=== PATIENT | male | born 1940 | race Asian ===

== ENCOUNTER 2022-08-16 00:04 | Inpatient (IN) | payer MEDICARE, OTHER ==
[~2022-08-16] VITALS: Ht 175.3 cm; Wt 62.1 kg
[2022-08-16] MEDS ORDERED: ACETAMINOPHEN 325 MG TABLET PO PRN (11:00)
[2022-08-16] MEDS ORDERED: DEXTROSE 50%-WATER 50 ML DISP.SYRIN IV PRN (11:00)
[2022-08-16] MEDS ORDERED: BLOOD SUGAR DIAGNOSTIC 1 EACH STRIP IN ONE (11:00)
[2022-08-16] MEDS ORDERED: MAGNESIUM HYDROXIDE 30 ML UDC PO PRN (11:00)
--- NOTE | 2022-08-16 11:00 | NUR ---
RN-ADMISSION NOTES 82 Y.O MALE PATIENT WAS BROUGHT IN BY AMBULANCE VIA GURNEY ADMITTED FOR 5150 FOR DTS FROM [facility] ER. UPON FACE TO IN FACE ASSESSMENT. PATIENT A/O X1, DENIES SI/HI,VAH WITH DISORGANIZE THOUGHT UNABLE TO FOCUS ON THE CONSERVATION. PATIENT IS AMBULATORY STEADY GAIT. PATIENT IS VERY POOR HISTORIAN UNABLE TO UNSWEAR MOST OF THE QUESTION DESPITE THE USE OF SENIOR MANAGER.PATIENT HAD NO FAMILY TO NOTIFY ON THE ADMISSION. DR. VALDES SEEN THE PATIENT IN THE UNIT WITH ORDERS. DR. ZHENG (ENERGY CONSERVATION DIRECTOR) MADE AWARE. PATIENT ORIENTED IN HIS ROOM,THE UNIT AND UNIT POLICIES.
[2022-08-16] MEDS: BLOOD SUGAR DIAGNOSTIC 1 EACH STRIP VI SCH ×3 (12:00→21:41)
--- NOTE | 2022-08-16 12:30 | NUR ---
RN-NOTES PATIENT BS WAS 487 MG/DL, WILL GIVE 15 UNITS OF R INSULIN ORDERED. DR. ZHENG MADE AWARE.
[2022-08-16] MEDS: INSULIN REGULAR, HUMAN 100 UNIT/ML 3 ML VIAL SQ PRN ×2 (12:39→16:42)
[2022-08-16] MEDS: METFORMIN 850 MG TABLET PO SCH ×2 (12:41→16:28)
[2022-08-16] MEDS: glipiZIDE 5 MG TABLET PO SCH ×2 (12:42→16:28)
[2022-08-16] MEDS ORDERED: LOSA25TA27 PO (12:43)
[2022-08-16] MEDS ORDERED: INSU100V27 SQ (12:43)
[2022-08-16] MEDS ORDERED: ZOLP5TAB8 PO (12:43)
[2022-08-16] MEDS ORDERED: CHOL200010 PO (12:43)
[2022-08-16] MEDS ORDERED: ATOR10TA PO (12:43)
[2022-08-16] MEDS ORDERED: MONT10TA22 PO (12:43)
[2022-08-16] MEDS ORDERED: ASPI-1420 PO (12:43)
--- NOTE | 2022-08-16 12:49 | NUR ---
VALENTIN Clinical Note: Pt placed on a 5150 hold for danger to self. Pt stated at the court he wanted to hang himself. Patient lives at home located at [address] [place] [address]; ([phone]). Pt unable to identify his address. Pt does not have supportive contact at this time. Pt would need a SNF.
--- NOTE | 2022-08-16 12:49 | NUR ---
VALENTIN Initial Discharge: Patient lives at home located at [address] [place] [id number]; ([phone]). Pt unable to identify his address. Pt does not have supportive contact at this time. Pt would need a SNF. VALENTIN will work with the MD and pt to help coordinate appropriate discharge.
--- NOTE | 2022-08-16 12:50 | NUR ---
Treatment Plan: Pt refused to sign treatment plan and was very confused.
[2022-08-16] MEDS ORDERED: SERTRALINE HCL 25 MG TABLET PO SCH (13:00)
[2022-08-16 16:00] VITALS: BP 103/60
[2022-08-16] MEDS: LORAZEPAM 0.5 MG TABLET PO PRN (17:05)
--- NOTE | 2022-08-16 17:07 | NUR ---
RN-NOTES NOTED PATIENT VERY ANXIOUS FOCUS ON GOING HOME AND ASKING WHEN HE CAN GO HOME WITH ANGRY VOICE. REDIRECTED AND ATIVAN 0.5MG P.O GIVEN PRN ORDER. WILL CONT. MONITORING FOR SAFETY AND BEHAVIOR.
--- NOTE | 2022-08-16 18:10 | NUR ---
RN-NOTES PATIENT LYING IN BED AWAKE A/O X1 CALM,NO ACUTE DISTRESS NOTED. COMPLIANT WITH MEDICATIONS. PATIENT AMBULATORY STEADY GAIT ABLE TO MAKE NEEDS KNOWN TO THE STAFF. ALL NEEDS ATTENDED AND ANTICIPATED. WILL CONT. MONITORING FOR SAFETY AND BEHAVIOR. WILL ENDORSE TO INCOMING NURSE FOR THE CONTINUITY OF CARE.
[2022-08-16 19:48] VITALS: BP 100/74
--- NOTE | 2022-08-16 20:43 | NUR ---
PATIENT REQUESTED TO CHECK HIS BLOOD GLUCOSE LEVEL AND BS IS 111 MG/DL. PATIENT WANTED TO EAT SNACK, SNACK AND JUICE GIVEN TO THE PATIENT, TOLERATING WELL. WILL CONTINUE TO MONITOR FOR ANY CHANGE OF CONDITION.
[2022-08-16] MEDS: MAG HYDROX/AL HYDROX/SIMETH 30 ML UDC PO PRN (22:06)
--- NOTE | 2022-08-16 22:09 | NUR ---
RN NOTE PATIENT C/O UPSET STOMACH AND WANTED TO TAKE MEDICINE. PRN MAALOX 30 ML PO ADMINISTERED PER MD ORDER. WILL CONTINUE TO MONITOR.
--- NOTE | 2022-08-16 22:20 | NUR ---
PATIENT'S DAUGHTER RANDELL CALLED TO GET AN UPDATE ABOUT PATIENT'S HEALTH CONDITION. PER AM RN, NO FAMILY INFO WAS PROVIDED UPON ADMISSION. PER RANDELL, PATIENT IS CONFUSED AND DIABETIC, LIVES WITH FAR RELATIVES CURRENTLY IN [place], HAD BEEN INDEPENDENT, GETS AGITATED, ANXIOUS, RESTLESS EASILY AND HAD HYPOGLYCEMIC EPISODES DUE TO DIABETES. RANDELL WOULD LIKE TO GET AN UPDATE FROM DR. VALDES TOMORROW REGARDING HER FATHER'S HEALTH CONDITION. WILL ENDORSE TO AM RN TO RELAY MESSAGE TO DR. VALDES. RANDELL PROVIDED HER PHONE NUMBER ([phone]) TO BE REACHED AT IN CASE OF EMERGENCY OR FOR ANY UPDATE ABOUT THE PATIENT.
--- NOTE | 2022-08-17 01:15 | NUR ---
RN NOTE PATIENT REQUESTED TO CHECK HIS BLOOD GLUCOSE LEVEL SINCE HE HAS BEEN WORRIED ABOUT HAVING LOW BLOOD SUGAR LEVELS AT HOME. BS IS 350 MG/DL AT THIS TIME. OFFERED SLIDING SCALE INSULIN BUT PATIENT GOT AGITATED, ANXIOUS AND STATED," IF YOU GIVE ME MEDICINE, BLOOD SUGAR GO DOWN AND I WILL ." PATIENT IS EASILY AGITATED, RESTLESS, UNCOOPERATIVE, DESPITE OF RISKS AND BENEFITS EXPLANATIONS, PATIENT CONTINUED TO REFUSE INSULIN PER PROTOCOL. WILL CONTINUE TO MONITOR FOR SYMPTOMS FOR HYPERGLYCEMIA.
--- NOTE | 2022-08-17 06:39 | NUR ---
PATIENT STRONGLY REFUSED AM LABS DESPITE OF RISKS AND BENEFITS EXPLANATIONS. PATIENT IS UNCOOPERATIVE WITH PLAN OF CARE.
[2022-08-17] MEDS: BLOOD SUGAR DIAGNOSTIC 1 EACH STRIP VI SCH ×4 (07:30→22:11)
[2022-08-17 08:00] VITALS: BP 166/83
[2022-08-17] MEDS: glipiZIDE 5 MG TABLET PO SCH ×2 (08:47→16:32)
[2022-08-17] MEDS: METFORMIN 850 MG TABLET PO SCH ×2 (08:47→16:32)
[2022-08-17] MEDS: INSULIN REGULAR, HUMAN 100 UNIT/ML 3 ML VIAL SQ PRN (08:56)
--- NOTE | 2022-08-17 11:38 | NUR ---
VALENTIN Referral: VALENTIN sent clinicals to [facility] ([phone]) for placement. VALENTIN sent H & P, progress notes, and medication list.
--- NOTE | 2022-08-17 11:49 | NUR ---
VALENTIN Family Contact: VALENTIN contacted pt's daughter Bouchra ([phone]) and discussed pt's discharge and treatment plan. Daughter expressed that she realized pt's symptoms occurring 2-3 years ago. She stated that her parents have been since 2007. She expressed that a year ago she was taking care of her dad at her house. However, she realized that he was experiencing hallucinations seeing things. She expressed that she feels that he was also experiencing delusions. She stated that recently she moved into a house with roommates. She expressed pt finds ways to come to her house and threatening family with a hammer or knife. She shared information about the court. She expressed that he had filed a lawsuit against the for financial situation and when he lost the case he made the statements of wanting to kill himself. Daughter stated that she is not the DPOA/conservator but would want pt to be discharged to a SNF as it is unsafe for him and the family.
[2022-08-17] MEDS: *INSULIN REGULAR(HUMULIN R)HUM 100 UNIT/ML VIAL SQ PRN ×2 (12:09→22:11)
[2022-08-17] MEDS: DIVALPROEX SODIUM 125 MG CAP.SPRINK PO SCH ×2 (12:39→16:32)
[2022-08-17 14:47] LABS: BILIRUBIN,TOTAL 0.3 mg/dL (0.2-1.0); POTASSIUM 3.9 mmol/L (3.5-5.1); TOTAL PROTEIN, SERUM 7.2 g/dL (6.4-8.2)
[2022-08-17 14:48] LABS: CHOLESTEROL 166 mg/dL (<200); HDL CHOLESTEROL 44 mg/dL (40-60); LDL 102 mg/dL (0-99); TRIGLYCERIDES 116 mg/dL (30-150)
[2022-08-17 16:00] VITALS: BP 126/67
--- NOTE | 2022-08-17 16:54 | NUR ---
RN-NOTES PATIENT BS WAS 173MG/DL, PATIENT REFUSED COVERAGE OF 3 UNITS OF REGULAR INSULIN. STATED" IT'S GOOD NO INJECTION". EXPLAINED RISK AND BENEFITS BUT STILL REFUSED. OFFERED X3
--- NOTE | 2022-08-17 17:58 | NUR ---
RN-NOTES PATIENT IS VISIBLE IN THE UNIT GUARDED,A/OX2, COOPERATIVE WITH STAFF,COMPLIANT WITH MEDICATIONS. ENCOURAGED TO PARTICIPATES IN THE GROUP BUT PREFERS TO STAY IN THE ROOM AND REST. PATIENT AMBULATORY WITH STEADY GAIT.PATIENT ABLE TO MAKE NEEDS KNOWN TO THE STAFF. ALL NEEDS ATTENDED AND ANTICIPATED. WILL CONT. MONITORING FOR SAFETY AND BEHAVIOR. WILL ENDORSE TO INCOMING NURSE FOR THE CONTINUITY OF CARE.
--- NOTE | 2022-08-17 19:49 | NUR ---
RN NOTES: RECEIVED PATIENT WALKING AROUND THE UNIT, IN NO APPARENT DISTRESS NOTED. PATIENT REMAINS CONFUSED, DISORGANIZED,ANXIOUS,RESTLESS, ARGUMENTATIVE EASILY AGITATED .HYPERVERBAL,ENTITLED , LABILE, NEEDY DEMANDING, FOCUS ON DISCHARGE AND FOCUS FREQUENTLY CHECKING BLOOD SUGAR WITHOUT SCHEDULE, ORIENTIONS PROVIDED, ALL NEEDS ATTENDED, NEEDS FREQUENTLY REDIRECTIONS ,SAFETY PRECAUTIONS MAINTAINED. WILL CONTINUE TO MONITOR Q15MIN ROUNDS FOR SAFETY AND BEHAVIOR.
[2022-08-17 20:00] VITALS: BP 146/68
--- NOTE | 2022-08-17 22:14 | NUR ---
RN-NOTES; REFUSED INSULLIN COVERAGE PATIENT BS WAS 283MG/DL, PATIENT REFUSED COVERAGE OF 6 UNITS OF REGULAR INSULIN. PER PT. STATED" I KNOW MY SELF THAT'S GOOD BLOOD SUGAR, IF I TAKE INSULLIN COVERAGE GET EASLIY DECREASED BLOOD SUGAR . EXPLAINED RISK AND BENEFITS BUT STILL REFUSED. OFFERED X3 , WILL CONTINUE WITH CARE.
[2022-08-17] MEDS: LORAZEPAM 0.5 MG TABLET PO PRN (22:42)
--- NOTE | 2022-08-17 22:44 | NUR ---
RN NOTES: ANXIETY PATIENT C/O FEELING AGITATED, ANXIOUS, RESTLESS, PRN ATIVAN 0.5 MG PO ADMINISTERED ORDERED BY MD. WILL CONTINUE TO MONITOR FOR SAFETY AND BEHAVIOR.
[2022-08-18 06:50] LABS: BASOPHILS % (AUTO) 0.5 % (0.0-2.0); EOSINOPHILS % (AUTO) 6.9 % (0.0-6.0); HEMATOCRIT 34 % (39-51); HEMOGLOBIN 11.7 g/dL (13.5-17.5); LYMPHOCYTES # (AUTO) 1.5 K/uL (0.8-4.8); LYMPHOCYTES % (AUTO) 27.9 % (20.0-44.0); MEAN CORPUSCULAR HGB CONC 34 g/dl (31.0-36.0); MEAN CORPUSCULAR VOLUME 93 fL (80-96); MONOCYTES # (AUTO) 0.8 K/uL (0.1-1.30); MONOCYTES % (AUTO) 14.7 % (2.0-12.0); NEUTROPHILS # (AUTO) 2.7 K/uL (1.8-8.9); PLATELET COUNT (AUTO) 187 K/uL (150-450); RED BLOOD CELL COUNT(AUTO) 3.69 MIL/uL (4.5-6.0); WHITE BLOOD COUNT (AUTO) 5.3 K/uL (4.3-11.0)
[2022-08-18 07:09] LABS: ALBUMIN 2.9 g/dL (3.4-5.0); BILIRUBIN,TOTAL 0.5 mg/dL (0.2-1.0); CALCIUM, SERUM 8.8 mg/dL (8.5-10.1); CREATININE 0.9 mg/dL (0.6-1.3); PHOSPHORUS 2.8 mg/dL (2.5-4.9); POTASSIUM 4.6 mmol/L (3.5-5.1); TOTAL PROTEIN, SERUM 6.9 g/dL (6.4-8.2)
[2022-08-18 07:13] LABS: THYROID STIMULATING HORMONE 2.264 uIU/mL (0.358-3.74)
[2022-08-18] MEDS: INSULIN REGULAR, HUMAN 100 UNIT/ML 3 ML VIAL SQ PRN ×2 (07:56→12:28)
[2022-08-18 08:00] VITALS: BP 150/72
[2022-08-18] MEDS: BLOOD SUGAR DIAGNOSTIC 1 EACH STRIP VI SCH ×4 (08:03→21:10)
[2022-08-18] MEDS: glipiZIDE 5 MG TABLET PO SCH ×2 (08:04→17:40)
[2022-08-18] MEDS: DIVALPROEX SODIUM 125 MG CAP.SPRINK PO SCH ×3 (08:04→17:39)
[2022-08-18] MEDS: METFORMIN 850 MG TABLET PO SCH ×2 (08:04→17:39)
--- NOTE | 2022-08-18 08:41 | NUR ---
VALENTIN Family Contact: VALENTIN contacted pt's daughter Bouchra ([phone]) and advised her to get a temporarily or emergency restraining order. She stated that they had filed for an emergency protective order, however, she stated that this is "useless" because her mother (pt's ex-) ends up taking care of pt and not follow directives. VALENTIN requested if daughter can send these documents she stated she will Email it by 08/19.
[2022-08-18 16:00] VITALS: BP 144/78
--- NOTE | 2022-08-18 17:53 | NUR ---
GPS/RN ACCUCHECK AT 1730 WITH YB=326. PT REFUSED INSULIN COVERAGE OFFERED X4.
--- NOTE | 2022-08-18 19:51 | NUR ---
RN NOTES: RECEIVED PATIENT SITTING IN HIS BED, IN NO APPARENT DISTRESS NOTED. PATIENT REMAINS CONFUSED, DISORGANIZED,ANXIOUS,RESTLESS, ARGUMENTATIVE EASILY AGITATED .HYPERVERBAL,ENTITLED , LABILE, NEEDY DEMANDING, FOCUS ON CHECKING BLOOD SUGAR WITHOUT SCHEDULE, ORIENTIONS PROVIDED, ALL NEEDS ATTENDED, NEEDS FREQUENTLY REDIRECTIONS ,SAFETY PRECAUTIONS MAINTAINED. WILL CONTINUE TO MONITOR Q15MIN ROUNDS FOR SAFETY AND BEHAVIOR.
[2022-08-18 20:00] VITALS: BP 137/64
[2022-08-18] MEDS: *INSULIN REGULAR(HUMULIN R)HUM 100 UNIT/ML VIAL SQ PRN (21:16)
--- NOTE | 2022-08-18 21:17 | NUR ---
RN-NOTES; REFUSED INSULLIN COVERAGE PATIENT BS WAS 244MG/DL, PATIENT REFUSED COVERAGE OF 4 UNITS OF REGULAR INSULIN. PER PT. STATED" I KNOW MY SELF THAT'S GOOD BLOOD SUGAR, IF I TAKE INSULLIN COVERAGE GET EASLIY DECREASED BLOOD SUGAR . EXPLAINED RISK AND BENEFITS BUT STILL REFUSED. OFFERED X3 , WILL CONTINUE WITH CARE.
[2022-08-18] MEDS ORDERED: DIVALPROEX SODIUM 125 MG CAP.SPRINK PO SCH (22:00)
[2022-08-18] MEDS: LORAZEPAM 0.5 MG TABLET PO PRN (22:54)
--- NOTE | 2022-08-18 22:55 | NUR ---
RN NOTES : ANXIETY PATIENT C/O FEELING AGITATED, ANXIOUS, RESTLESS, PRN ATIVAN 0.5 MG PO ADMINISTERED ORDERED BY MD. WILL CONTINUE TO MONITOR FOR SAFETY AND BEHAVIOR.
[2022-08-19 08:00] VITALS: BP 119/63
[2022-08-19] MEDS: BLOOD SUGAR DIAGNOSTIC 1 EACH STRIP VI SCH ×4 (08:24→22:00)
[2022-08-19] MEDS: *INSULIN REGULAR(HUMULIN R)HUM 100 UNIT/ML VIAL SQ PRN ×2 (08:26→22:14)
[2022-08-19] MEDS: DIVALPROEX SODIUM 125 MG CAP.SPRINK PO SCH ×4 (08:28→22:04)
[2022-08-19] MEDS: METFORMIN 850 MG TABLET PO SCH ×2 (08:28→16:54)
[2022-08-19] MEDS: glipiZIDE 5 MG TABLET PO SCH ×2 (08:28→16:54)
[2022-08-19] MEDS: INSULIN REGULAR, HUMAN 100 UNIT/ML 3 ML VIAL SQ PRN (12:10)
[2022-08-19 16:00] VITALS: BP 126/60
--- NOTE | 2022-08-19 16:51 | NUR ---
GPS/RN ACCUCHECK WITH NQ=868. PT REQUESTED NO INSULIN COVERAGE
[2022-08-19 20:00] VITALS: BP 119/63
[2022-08-19 20:05] VITALS: BP 119/63
--- NOTE | 2022-08-19 20:05 | NUR ---
RN OPENING NOTES: RECEIVED PATIENT AWAKE IN BED, AMBULATORY ABLE TO MAKE NEEDS KNOWN, NO COMPLAIN OF PAIN AND DISCOMFORT AT THIS TIME, ON ROOM AIR SATURATING WELL, PATIENT APPEARS CALM, NO COMBATIVE BEHAVIOR WAS OBSERVED, KEPT CLEAN AND DRY ALL NEEDS MET, WILL CONTINUE TO MONITOR.
--- NOTE | 2022-08-19 22:21 | NUR ---
RN NOTES: BLOOD SUGAR-229/ 3 UNITS INSULIN NOT GIVEN/ PATIENT REFUSED INSULIN
[2022-08-20] MEDS: LORAZEPAM 0.5 MG TABLET PO PRN (00:08)
[2022-08-20] MEDS: BLOOD SUGAR DIAGNOSTIC 1 EACH STRIP VI SCH ×4 (07:52→22:13)
[2022-08-20] MEDS: INSULIN REGULAR, HUMAN 100 UNIT/ML 3 ML VIAL SQ PRN (07:56)
[2022-08-20] MEDS: glipiZIDE 5 MG TABLET PO SCH ×2 (07:59→16:05)
[2022-08-20 08:00] VITALS: BP 113/68
[2022-08-20] MEDS: DIVALPROEX SODIUM 125 MG CAP.SPRINK PO SCH ×4 (09:03→22:11)
[2022-08-20] MEDS: METFORMIN 850 MG TABLET PO SCH ×2 (09:03→16:05)
--- NOTE | 2022-08-20 11:59 | NUR ---
RN NOTE Patient's blood glucose is 221, patient refused Insulin coverage.
[2022-08-20 16:00] VITALS: BP 131/68
--- NOTE | 2022-08-20 18:53 | NUR ---
RN CLOSING NOTE Patient keeps walking around the hallway. Stable on room air. Patient is compliant with medications. No s/s of distress noted. Refused Insulin coverage, last blood glucose is 199. Will endorse to material handler 1st shift nurse for [facility].
--- NOTE | 2022-08-20 20:18 | NUR ---
GPS PLANT AND MACHINERY VALUER NOTE, RECEIVED PATIENT ASLEEP IN BED, NO S/S OF APPARENT DISTRESS AT THIS TIME. PATIENT BREATHING IS UNLABORED WITH EQUAL RISE AND FALL OF THE CHEST. WILL CONTINUE TO MONITOR FOR SAFETY AND BEHAVIOR.
[2022-08-20 20:26] VITALS: BP 152/79
[2022-08-20] MEDS: TEMAZEPAM 7.5 MG CAPSULE PO PRN ×2 (22:11)
[2022-08-20] MEDS: *INSULIN REGULAR(HUMULIN R)HUM 100 UNIT/ML VIAL SQ PRN (22:14)
[2022-08-21] MEDS: LORAZEPAM 0.5 MG TABLET PO PRN ×2 (03:48→14:03)
[2022-08-21] MEDS: BLOOD SUGAR DIAGNOSTIC 1 EACH STRIP VI SCH ×4 (06:50→21:15)
[2022-08-21] MEDS: INSULIN REGULAR, HUMAN 100 UNIT/ML 3 ML VIAL SQ PRN ×2 (06:51→08:20)
[2022-08-21] MEDS: glipiZIDE 5 MG TABLET PO SCH ×2 (07:38→16:30)
[2022-08-21 07:40] LABS: ALBUMIN 3.4 g/dL (3.4-5.0); BILIRUBIN,TOTAL 0.5 mg/dL (0.2-1.0); CALCIUM, SERUM 9.5 mg/dL (8.5-10.1); POTASSIUM 5.3 mmol/L (3.5-5.1); TOTAL PROTEIN, SERUM 8.2 g/dL (6.4-8.2)
[2022-08-21 07:44] LABS: BASOPHILS % (AUTO) 0.4 % (0.0-2.0); EOSINOPHILS % (AUTO) 6.1 % (0.0-6.0); HEMATOCRIT 40 % (39-51); HEMOGLOBIN 13.3 g/dL (13.5-17.5); LYMPHOCYTES # (AUTO) 1.9 K/uL (0.8-4.8); LYMPHOCYTES % (AUTO) 30.1 % (20.0-44.0); MEAN CORPUSCULAR HGB CONC 33 g/dl (31.0-36.0); MEAN CORPUSCULAR VOLUME 94 fL (80-96); MONOCYTES # (AUTO) 0.8 K/uL (0.1-1.30); MONOCYTES % (AUTO) 13.5 % (2.0-12.0); NEUTROPHILS # (AUTO) 3.1 K/uL (1.8-8.9); NEUTROPHILS % (AUTO) 49.9 % (43.0-81.0); PLATELET COUNT (AUTO) 196 K/uL (150-450); RED BLOOD CELL COUNT(AUTO) 4.25 MIL/uL (4.5-6.0); WHITE BLOOD COUNT (AUTO) 6.3 K/uL (4.3-11.0)
[2022-08-21 08:00] VITALS: BP 118/69
[2022-08-21] MEDS: METFORMIN 850 MG TABLET PO SCH ×2 (08:21→17:36)
[2022-08-21] MEDS: DIVALPROEX SODIUM 125 MG CAP.SPRINK PO SCH ×4 (08:21→20:52)
--- NOTE | 2022-08-21 08:58 | NUR ---
VALENTIN Family Contact: VALENTIN contacted pt's daughter Bouchra ([phone]) and left a voicemail requested the documents of the emergency order.
--- NOTE | 2022-08-21 14:03 | NUR ---
NURSE NOTE: PT AGITATED AND RESTLESS AT THIS TIME. ATIVAN PO ADMINISTERED ORDERED. PT MEGAN WELL. WILL CONT TO MONITOR.
--- NOTE | 2022-08-21 15:00 | NUR ---
NURSE NOTE: PT CONT RESTLESS BUT MORE CALM AT THIS TIME. PT IN STABLE COND. WILL CONT TO MONITOR.
[2022-08-21 16:00] VITALS: BP 117/65
[2022-08-21 20:26] VITALS: BP 119/67
--- NOTE | 2022-08-21 21:15 | NUR ---
RN NOTE PATIENT'S BLOOD GLUCOSE IS 221, PATIENT REFUSED INSULIN COVERAGE. DESPITE OF EXPLANATION THE RISKS/BENEFITS PT CONTINUED TO REFUSE AND BECAME AGITATED WHEN OFFERED.
[2022-08-21] MEDS: *INSULIN REGULAR(HUMULIN R)HUM 100 UNIT/ML VIAL SQ PRN (22:27)
[2022-08-22 08:00] VITALS: BP 124/83
[2022-08-22] MEDS: METFORMIN 850 MG TABLET PO SCH ×2 (08:23→16:42)
[2022-08-22] MEDS: glipiZIDE 5 MG TABLET PO SCH ×2 (08:23→16:41)
--- NOTE | 2022-08-22 08:37 | NUR ---
VALENTIN Family Contact: VALENTIN contacted pt's daughter Bouchra ([phone]) and left a voicemail requested the documents of the emergency order. This is the second attempt.
--- NOTE | 2022-08-22 08:37 | NUR ---
Greer: SW will contact pt's daughter to notify of discharge Bouchra ([phone]) upon dc.
[2022-08-22] MEDS: INSULIN REGULAR, HUMAN 100 UNIT/ML 3 ML VIAL SQ PRN ×2 (08:44→12:33)
[2022-08-22] MEDS: BLOOD SUGAR DIAGNOSTIC 1 EACH STRIP VI SCH ×4 (08:45→21:22)
[2022-08-22] MEDS: DIVALPROEX SODIUM 125 MG CAP.SPRINK PO SCH ×4 (11:19→21:35)
--- NOTE | 2022-08-22 11:54 | NUR ---
VALENTIN Note: VALENTIN used L-[employer] academic coordinator #[id number]. VALENTIN and Dr. Lopez present explaining to the pt that daughter is not answer phone calls so he is unable to return back home and will be needing a nursing facility. He appeared to be understanding but forgetful.
--- NOTE | 2022-08-22 14:03 | NUR ---
Court Hearing: Patient's court hearing for 9370 was today and it was upheld for danger to himself and GD.
--- NOTE | 2022-08-22 14:03 | NUR ---
Court Notification: SW attempted to contact pt's daughter Bouchra ([phone]) and left a voicemail of [phone] hearing.
[2022-08-22 16:00] VITALS: BP 125/73
[2022-08-22 19:55] VITALS: BP 109/52
[2022-08-22 21:30] VITALS: BP 109/52
[2022-08-23 08:00] VITALS: BP 112/63
[2022-08-23] MEDS: METFORMIN 850 MG TABLET PO SCH ×2 (08:16→17:07)
[2022-08-23] MEDS: DIVALPROEX SODIUM 125 MG CAP.SPRINK PO SCH ×4 (08:17→20:46)
[2022-08-23] MEDS: BLOOD SUGAR DIAGNOSTIC 1 EACH STRIP VI SCH ×4 (08:17→22:14)
[2022-08-23] MEDS: glipiZIDE 5 MG TABLET PO SCH ×2 (08:18→17:07)
[2022-08-23] MEDS: INSULIN REGULAR, HUMAN 100 UNIT/ML 3 ML VIAL SQ PRN (12:18)
[2022-08-23] MEDS: GLUCERNA SHAKE 237 ML CAN PO SCH (17:07)
[2022-08-23 19:49] VITALS: BP 124/74
--- NOTE | 2022-08-23 19:50 | NUR ---
RN NOTES: RECEIVED PATIENT SITTING IN HIS BED, IN NO APPARENT DISTRESS NOTED. PATIENT REMAINS CONFUSED, DISORGANIZED, EASILY AGITATED , HYPERVERBAL, GUARDED LABILE, NEEDY ORIENTIONS PROVIDED, ALL NEEDS ATTENDED, NEEDS FREQUENTLY REDIRECTIONS ,SAFETY PRECAUTIONS MAINTAINED. WILL CONTINUE TO MONITOR Q15MIN ROUNDS FOR SAFETY AND BEHAVIOR.
[2022-08-23] MEDS: *INSULIN REGULAR(HUMULIN R)HUM 100 UNIT/ML VIAL SQ PRN (22:14)
--- NOTE | 2022-08-23 22:16 | NUR ---
RN-NOTES; REFUSED INSULLIN COVERAGE PATIENT BS WAS 208MG/DL, PATIENT REFUSED COVERAGE OF 4 UNITS OF REGULAR INSULIN. PER PT. STATED" I KNOW MY SELF THAT'S GOOD BLOOD SUGAR, . EXPLAINED RISK AND BENEFITS BUT STILL REFUSED. OFFERED X3 , WILL CONTINUE WITH CARE.
[2022-08-24] MEDS: glipiZIDE 5 MG TABLET PO SCH ×3 (07:30→16:38)
[2022-08-24] MEDS: BLOOD SUGAR DIAGNOSTIC 1 EACH STRIP VI SCH ×4 (07:32→22:05)
[2022-08-24 08:00] VITALS: BP 122/70
[2022-08-24] MEDS: METFORMIN 850 MG TABLET PO SCH ×2 (08:31→16:45)
[2022-08-24] MEDS: DIVALPROEX SODIUM 125 MG CAP.SPRINK PO SCH ×4 (08:31→21:10)
[2022-08-24] MEDS: *INSULIN REGULAR(HUMULIN R)HUM 100 UNIT/ML VIAL SQ PRN ×2 (08:47→22:05)
[2022-08-24] MEDS: GLUCERNA SHAKE 237 ML CAN PO SCH ×2 (08:51→16:37)
--- NOTE | 2022-08-24 09:03 | NUR ---
RN-NOTES; REFUSED INSULIN COVERAGE PATIENT BS WAS 203MG/DL, PATIENT REFUSED INSULIN. PER PT. EXPLAINED RISK AND BENEFITS BUT STILL REFUSED. OFFERED 2X , WILL CONTINUE TO MONITOR.
[2022-08-24] MEDS: INSULIN REGULAR, HUMAN 100 UNIT/ML 3 ML VIAL SQ PRN ×2 (11:17→18:08)
--- NOTE | 2022-08-24 11:20 | NUR ---
RN-NOTES; REFUSED INSULIN COVERAGE PATIENT BS WAS 253MG/DL, PATIENT REFUSED INSULIN. PER PT. PATIENT KEEP ON MENTIONING ABOUT "DYING" EXPLAINED RISK AND BENEFITS BUT STILL REFUSED. WILL APPROACH AGAIN LATER. RACHEL ZENG MACHINE OPERATOR SLITTER TECHNICIAN NOTIFIED.
--- NOTE | 2022-08-24 11:50 | NUR ---
RN-NOTES; REFUSED INSULIN COVERAGE PATIENT STILL REFUSING INSULIN, EXPLAINED RISK AND BENEFITS BUT STILL REFUSED. WILL MONITOR.
--- NOTE | 2022-08-24 12:34 | NUR ---
RN-NOTES; REFUSED INSULIN COVERAGE PATIENT STILL REFUSING INSULIN, THIS TIME APPROACHED BY CHARGE NURSE JAM EXPLAINED RISK AND BENEFITS BUT STILL REFUSED. WILL CONTINUE TO MONITOR
[2022-08-24] MEDS: QUETIAPINE FUMARATE 25 MG TABLET PO SCH ×2 (12:38→16:37)
[2022-08-24 16:00] VITALS: BP 112/59
--- NOTE | 2022-08-24 18:10 | NUR ---
RN-NOTES; REFUSED INSULIN COVERAGE PATIENT REFUSED INSULIN COVERAGE EXPLAINED RISK AND BENEFITS BUT STILL REFUSED. WILL CONTINUE TO MONITOR. APPROACHED AND ENCOURAGED 3X, STILL REFUSED. WILL MONITOR.
--- NOTE | 2022-08-24 18:34 | NUR ---
RN-NOTES PATIENT IS VISIBLE IN THE UNIT GUARDED,[id number] WITH MEDICATIONS. REFUSED INSULIN COVERAGE THIS SHIFT DESPITE ENCOURAGEMENT,EXPLANATIONS RISK AND BENEFITS. FIELD RECORDER ZENG MADE AWARE.ENCOURAGED TO PARTICIPATES IN THE GROUP BUT PREFERS TO STAY IN THE ROOM AND REST. PATIENT AMBULATORY WITH STEADY GAIT.PATIENT ABLE TO MAKE NEEDS KNOWN TO THE STAFF. ALL NEEDS ATTENDED AND ANTICIPATED. WILL CONT. MONITORING FOR SAFETY AND BEHAVIOR. WILL ENDORSE TO INCOMING NURSE FOR THE CONTINUITY OF CARE.
[2022-08-24 20:06] VITALS: BP 102/63
--- NOTE | 2022-08-24 20:41 | NUR ---
RN NOTES: RECEIVED PATIENT RESTING IN HIS BED, IN NO APPARENT DISTRESS NOTED. PATIENT REMAINS CONFUSED, DISORGANIZED, EASILY AGITATED , HYPERVERBAL, GUARDED LABILE, NEEDY ORIENTIONS PROVIDED, FOCUS ON DISCHARGE HOME, ALL NEEDS ATTENDED, NEEDS FREQUENTLY REDIRECTIONS ,SAFETY PRECAUTIONS MAINTAINED. WILL CONTINUE TO MONITOR Q15MIN ROUNDS FOR SAFETY AND BEHAVIOR.
--- NOTE | 2022-08-24 22:06 | NUR ---
RN-NOTES; REFUSED INSULLIN COVERAGE PATIENT BS WAS 203MG/DL, PATIENT REFUSED COVERAGE OF 4 UNITS OF REGULAR INSULIN. PER PT. STATED" I KNOW MY SELF THAT'S GOOD BLOOD SUGAR, EXPLAINED RISK AND BENEFITS BUT STILL REFUSED. OFFERED X3 , WILL CONTINUE WITH CARE.
[2022-08-25 08:00] VITALS: BP 112/60
[2022-08-25] MEDS: BLOOD SUGAR DIAGNOSTIC 1 EACH STRIP VI SCH ×4 (08:33→21:51)
[2022-08-25] MEDS: INSULIN REGULAR, HUMAN 100 UNIT/ML 3 ML VIAL SQ PRN ×2 (08:34→12:42)
[2022-08-25] MEDS: GLUCERNA SHAKE 237 ML CAN PO SCH ×2 (08:43→16:34)
[2022-08-25] MEDS: METFORMIN 850 MG TABLET PO SCH ×2 (08:46→16:37)
[2022-08-25] MEDS: DIVALPROEX SODIUM 125 MG CAP.SPRINK PO SCH ×4 (08:46→21:28)
[2022-08-25] MEDS: QUETIAPINE FUMARATE 25 MG TABLET PO SCH ×2 (08:46→16:42)
[2022-08-25] MEDS: glipiZIDE 5 MG TABLET PO SCH ×2 (08:48→16:39)
[2022-08-25] MEDS ORDERED: LINAGLIPTIN 5 MG TABLET PO SCH (09:00)
[2022-08-25 16:00] VITALS: BP 106/60
--- NOTE | 2022-08-25 17:47 | NUR ---
GPS/RN accucheck with BS =75. NO COVERAGE
[2022-08-25 20:00] VITALS: BP 135/77
--- NOTE | 2022-08-25 20:13 | NUR ---
RN NOTES: RECEIVED PATIENT RESTING IN HIS BED, IN NO APPARENT DISTRESS NOTED. PATIENT REMAINS CONFUSED, DISORGANIZED, EASILY AGITATED , HYPERVERBAL, GUARDED LABILE, NEEDY ORIENTIONS PROVIDED, FOCUS ON CHECKING BLOOD SUGAR, ALL NEEDS ATTENDED, NEEDS FREQUENTLY REDIRECTIONS ,SAFETY PRECAUTIONS MAINTAINED. WILL CONTINUE TO MONITOR Q15MIN ROUNDS FOR SAFETY AND BEHAVIOR.
[2022-08-25] MEDS: *INSULIN REGULAR(HUMULIN R)HUM 100 UNIT/ML VIAL SQ PRN (21:55)
--- NOTE | 2022-08-25 21:56 | NUR ---
RN-NOTES; REFUSED INSULLIN COVERAGE PATIENT BS WAS 142MG/DL, PATIENT REFUSED COVERAGE OF 2 UNITS OF REGULAR INSULIN. PER PT. STATED" I KNOW MY SELF MY BLOOD SUGAR IS FINE, EXPLAINED RISK AND BENEFITS BUT STILL REFUSED. OFFERED X3 , WILL CONTINUE WITH CARE.
[2022-08-26] MEDS: BLOOD SUGAR DIAGNOSTIC 1 EACH STRIP VI SCH ×4 (07:45→21:37)
[2022-08-26 08:00] VITALS: BP 117/57
[2022-08-26] MEDS: INSULIN REGULAR, HUMAN 100 UNIT/ML 3 ML VIAL SQ PRN ×3 (08:11→12:52)
[2022-08-26] MEDS: METFORMIN 850 MG TABLET PO SCH ×2 (08:13→16:28)
[2022-08-26] MEDS: DIVALPROEX SODIUM 125 MG CAP.SPRINK PO SCH ×4 (08:13→21:32)
[2022-08-26] MEDS: GLUCERNA SHAKE 237 ML CAN PO SCH ×2 (08:14→16:26)
[2022-08-26] MEDS: QUETIAPINE FUMARATE 25 MG TABLET PO SCH ×2 (08:14→16:28)
[2022-08-26 08:20] LABS: BASOPHILS % (AUTO) 0.3 % (0.0-2.0); EOSINOPHILS % (AUTO) 8.4 % (0.0-6.0); HEMATOCRIT 34 % (39-51); HEMOGLOBIN 11.3 g/dL (13.5-17.5); LYMPHOCYTES # (AUTO) 1.5 K/uL (0.8-4.8); LYMPHOCYTES % (AUTO) 27.7 % (20.0-44.0); MEAN CORPUSCULAR HGB CONC 34 g/dl (31.0-36.0); MEAN CORPUSCULAR VOLUME 94 fL (80-96); MONOCYTES # (AUTO) 0.9 K/uL (0.1-1.30); MONOCYTES % (AUTO) 17.1 % (2.0-12.0); NEUTROPHILS # (AUTO) 2.4 K/uL (1.8-8.9); NEUTROPHILS % (AUTO) 46.5 % (43.0-81.0); PLATELET COUNT (AUTO) 148 K/uL (150-450); RED BLOOD CELL COUNT(AUTO) 3.59 MIL/uL (4.5-6.0); WHITE BLOOD COUNT (AUTO) 5.2 K/uL (4.3-11.0)
[2022-08-26] MEDS: glipiZIDE 5 MG TABLET PO SCH ×2 (08:23→16:28)
--- NOTE | 2022-08-26 08:34 | NUR ---
GPS/ETHAN BREAUX WITH RY=557 PT REFUSED THE INSULIN COVERAGE OFFERED X3 Addendum: 08/26/22 at 1705 by MOY RAYMOND RN pt agreeed to insulin coverage at 1030 am
[2022-08-26 08:42] LABS: ALBUMIN 2.8 g/dL (3.4-5.0); BILIRUBIN,TOTAL 0.3 mg/dL (0.2-1.0); CALCIUM, SERUM 8.9 mg/dL (8.5-10.1); POTASSIUM 4.2 mmol/L (3.5-5.1); TOTAL PROTEIN, SERUM 6.6 g/dL (6.4-8.2)
[2022-08-26 14:41] LABS: EOSINOPHILS % (MANUAL) 8 % (0-4); LYMPHOCYTES % (MANUAL) 22 % (16-48); MONOCYTES % (MANUAL) 12 % (0-11.0); NEUTROPHILS % (MANUAL) 58 (42-76)
[2022-08-26 16:00] VITALS: BP 100/60
--- NOTE | 2022-08-26 17:06 | NUR ---
GPS/RN GPS/RN ACCUCHECK WITH YT=812 PT REFUSED THE INSULIN COVERAGE OFFERED X3
[2022-08-26 20:00] VITALS: BP 133/60
[2022-08-26] MEDS: TEMAZEPAM 7.5 MG CAPSULE PO PRN (21:32)
[2022-08-27] MEDS: BLOOD SUGAR DIAGNOSTIC 1 EACH STRIP VI SCH ×4 (07:45→21:29)
[2022-08-27] MEDS: glipiZIDE 5 MG TABLET PO SCH ×2 (07:46→17:28)
[2022-08-27 08:00] VITALS: BP 127/61
[2022-08-27] MEDS: QUETIAPINE FUMARATE 25 MG TABLET PO SCH ×2 (08:07→17:29)
[2022-08-27] MEDS: METFORMIN 850 MG TABLET PO SCH ×2 (08:07→17:29)
[2022-08-27] MEDS: GLUCERNA SHAKE 237 ML CAN PO SCH ×2 (08:08→17:31)
[2022-08-27] MEDS: DIVALPROEX SODIUM 125 MG CAP.SPRINK PO SCH ×4 (08:08→21:29)
[2022-08-27] MEDS: LINAGLIPTIN 5 MG TABLET PO SCH (08:10)
[2022-08-27] MEDS: INSULIN REGULAR, HUMAN 100 UNIT/ML 3 ML VIAL SQ PRN ×3 (13:48→17:30)
--- NOTE | 2022-08-27 14:10 | NUR ---
RN-CO; PATIENT IN THE HALLWAY, WITH HER VISITOR. NO S/S OF DISCOMFORTS. SHE IS CONFUSED AND DISORGANIZED. PT WAS RESTLESS IN THE MORNING, ALL NEEDS ATTENDED. Addendum: 08/27/22 at 1411 by LEONA BORJAS RN RUBIACO: WRONG CHARTING
[2022-08-27 16:00] VITALS: BP 124/71
--- NOTE | 2022-08-27 18:44 | NUR ---
NURSE NOTE: PT'S DAUGHTER AND IN TO VISIT PT AT THIS TIME. PT HAPPY TO SEE FAMILY. PT REFUSED INSULIN ALL THROUGHOUT SHIFT. ENCOURAGED MULT TIMES, BUT PT REFUSED. WILL ENDORSE TO PM SHIFT.
[2022-08-27 20:23] VITALS: BP 143/76
--- NOTE | 2022-08-27 21:30 | NUR ---
GPS/RN - ACCUCHECK WITH LH=579 BUT PATIENT REFUSED THE INSULIN COVERAGE OFFERED X 3 DESPITE OF RISKS AND BENEFITS EXPLANATIONS.
--- NOTE | 2022-08-27 21:50 | NUR ---
RN NOTE PATIENT REFUSED WEEKLY SKIN ASSESSMENT X 3 DESPITE OF RISKS AND BENEFITS EXPLANATIONS.
[2022-08-28] MEDS: glipiZIDE 5 MG TABLET PO SCH ×2 (07:45→16:54)
[2022-08-28] MEDS: BLOOD SUGAR DIAGNOSTIC 1 EACH STRIP VI SCH ×4 (07:45→22:06)
[2022-08-28 08:00] VITALS: BP 115/68
[2022-08-28] MEDS: QUETIAPINE FUMARATE 25 MG TABLET PO SCH ×2 (08:28→16:54)
[2022-08-28] MEDS: LINAGLIPTIN 5 MG TABLET PO SCH (08:28)
[2022-08-28] MEDS: GLUCERNA SHAKE 237 ML CAN PO SCH ×2 (08:28→16:54)
[2022-08-28] MEDS: METFORMIN 850 MG TABLET PO SCH ×2 (08:28→16:54)
[2022-08-28] MEDS: DIVALPROEX SODIUM 125 MG CAP.SPRINK PO SCH ×4 (08:28→21:11)
--- NOTE | 2022-08-28 13:00 | NUR ---
NURSE NOTE: ATTEMPTED TO GIVE PT INSULIN COVERAGE, BUT PT REFUSED. ENCOURAGED MULTIPLE TIMES, BUT PT SAID THAT HE IS OK AND HIS BS WILL GO TO LOW.
[2022-08-28 16:00] VITALS: BP 101/61
[2022-08-28 19:39] VITALS: BP 121/69
[2022-08-28] MEDS ORDERED: QUETIAPINE FUMARATE 25 MG TABLET PO SCH (22:00)
[2022-08-29 08:00] VITALS: BP 115/65
[2022-08-29] MEDS: GLUCERNA SHAKE 237 ML CAN PO SCH ×2 (08:00→16:21)
[2022-08-29] MEDS: BLOOD SUGAR DIAGNOSTIC 1 EACH STRIP VI SCH ×4 (08:09→21:11)
[2022-08-29] MEDS: INSULIN REGULAR, HUMAN 100 UNIT/ML 3 ML VIAL SQ PRN ×2 (08:12→12:00)
[2022-08-29] MEDS: METFORMIN 850 MG TABLET PO SCH ×2 (09:42→16:20)
[2022-08-29] MEDS: glipiZIDE 5 MG TABLET PO SCH ×2 (09:42→16:20)
[2022-08-29] MEDS: DIVALPROEX SODIUM 125 MG CAP.SPRINK PO SCH ×4 (09:42→21:06)
[2022-08-29] MEDS: LINAGLIPTIN 5 MG TABLET PO SCH (09:43)
[2022-08-29] MEDS: QUETIAPINE FUMARATE 25 MG TABLET PO SCH ×2 (09:43→16:20)
[2022-08-29 16:00] VITALS: BP 106/61
[2022-08-29 20:05] VITALS: BP 132/63
[2022-08-29 20:25] VITALS: BP 132/63
--- NOTE | 2022-08-29 21:39 | NUR ---
RN NOTE: PATIENT'S BLOOD GLUCOSE LEVEL IS 158 MG/DL, PATIENT REFUSED SSI X 3 DESPITE OF RISKS AND BENEFITS EXPLANATIONS. PATIENT GETS WORRIED ABOUT HAVING LOW BLOOD GLUCOSE LEVELS WHEN INSULIN IS GIVEN. WILL CONTINUE TO MONITOR FOR ANY CHANGE OF CONDITION.
[2022-08-29] MEDS ORDERED: QUETIAPINE FUMARATE 25 MG TABLET PO SCH (22:00)
[2022-08-30] MEDS: BLOOD SUGAR DIAGNOSTIC 1 EACH STRIP VI SCH ×4 (07:04→21:13)
--- NOTE | 2022-08-30 07:04 | NUR ---
PATIENT'S BLOOD GLUCOSE LEVEL IS 173 MG/DL BUT PATIENT IS REFUSING SLIDING SCALE INSULIN AT THIS TIME. WILL ENDORSE TO AM RN FOR CONTINUITY OF CARE.
[2022-08-30 07:32] LABS: BASOPHILS % (AUTO) 0.4 % (0.0-2.0); EOSINOPHILS % (AUTO) 8.2 % (0.0-6.0); HEMATOCRIT 35 % (39-51); LYMPHOCYTES # (AUTO) 1.4 K/uL (0.8-4.8); LYMPHOCYTES % (AUTO) 23.4 % (20.0-44.0); MEAN CORPUSCULAR HGB CONC 34 g/dl (31.0-36.0); MEAN CORPUSCULAR VOLUME 93 fL (80-96); MONOCYTES % (AUTO) 16.4 % (2.0-12.0); NEUTROPHILS # (AUTO) 3.2 K/uL (1.8-8.9); NEUTROPHILS % (AUTO) 51.6 % (43.0-81.0); PLATELET COUNT (AUTO) 171 K/uL (150-450); RED BLOOD CELL COUNT(AUTO) 3.81 MIL/uL (4.5-6.0); WHITE BLOOD COUNT (AUTO) 6.1 K/uL (4.3-11.0)
[2022-08-30 08:00] VITALS: BP 106/63
[2022-08-30] MEDS: glipiZIDE 5 MG TABLET PO SCH ×2 (08:37→16:37)
--- NOTE | 2022-08-30 08:37 | NUR ---
RN- NOTES PATIENT REFUSED GLUCOTROL 15MG UNTIL AFTER FINISHED WITH BREAKFAST.
[2022-08-30] MEDS: LINAGLIPTIN 5 MG TABLET PO SCH (08:39)
[2022-08-30] MEDS: METFORMIN 850 MG TABLET PO SCH ×2 (08:39→16:37)
[2022-08-30] MEDS: DIVALPROEX SODIUM 125 MG CAP.SPRINK PO SCH ×5 (08:39→21:13)
[2022-08-30] MEDS: QUETIAPINE FUMARATE 25 MG TABLET PO SCH ×4 (08:39→22:00)
[2022-08-30 08:42] LABS: ALBUMIN 3.1 g/dL (3.4-5.0); BILIRUBIN,TOTAL 0.3 mg/dL (0.2-1.0); CALCIUM, SERUM 9.3 mg/dL (8.5-10.1); TOTAL PROTEIN, SERUM 7.3 g/dL (6.4-8.2)
[2022-08-30] MEDS: GLUCERNA SHAKE 237 ML CAN PO SCH ×2 (08:47→16:39)
[2022-08-30 09:35] LABS: EOSINOPHILS % (MANUAL) 8 % (0-4); LYMPHOCYTES % (MANUAL) 30 % (16-48); MONOCYTES % (MANUAL) 14 % (0-11.0); NEUTROPHILS % (MANUAL) 48 (42-76)
--- NOTE | 2022-08-30 11:56 | NUR ---
RN- NOTES PATIENT BLOOD GLUCOSE NOTED AT 206, PATIENT REFUSED INSULIN COVERAGE, OFFERED AND EDUCATED X3.
--- NOTE | 2022-08-30 14:20 | NUR ---
VALENTIN Family Contact: VALENTIN contacted pt's daughter Bouchra ([phone]) who stated that she did not have the chance to send the document for the emergency retraining order. She stated that she is out of state and that she does not have service on her phone. VALENTIN requested if she can kindly send the restraining order. She stated that she will try to send it. VALENTIN notified that her father is accepted at [facility] and his dc will be . She was agreeable of this plan.
[2022-08-30 16:00] VITALS: BP 115/62
--- NOTE | 2022-08-30 16:38 | NUR ---
RN- NOTES PATIENT BLOOD GLUCOSE NOTED AT 205, PATIENT REFUSED INSULIN COVERAGE X3 DESPITE EDUCATION AND REORIENTATION.
--- NOTE | 2022-08-30 18:37 | NUR ---
RN-NOTES PATIENT IS VISIBLE IN THE UNIT GUARDED,A/OX2 SELECTIVE WITH MEDICATIONS. REFUSED INSULIN COVERAGE THIS SHIFT DESPITE ENCOURAGEMENT,EXPLANATIONS RISK AND BENEFITS. MANAGER INSTALLATION ZENG MADE AWARE.ENCOURAGED TO PARTICIPATES IN THE GROUP BUT PREFERS TO STAY IN THE ROOM AND REST. PATIENT AMBULATORY WITH STEADY GAIT.PATIENT ABLE TO MAKE NEEDS KNOWN TO THE STAFF. ALL NEEDS ATTENDED AND ANTICIPATED. WILL CONT. MONITORING FOR SAFETY AND BEHAVIOR. WILL ENDORSE TO INCOMING NURSE FOR THE CONTINUITY OF CARE.
[2022-08-30 20:20] VITALS: BP 98/50
[2022-08-30] MEDS: MAG HYDROX/AL HYDROX/SIMETH 30 ML UDC PO PRN (21:28)
--- NOTE | 2022-08-30 22:30 | NUR ---
NURSE NOTE: PT REFUSE INSULIN AT THIS TIME. PT ALSO REFUSED PM MEDS STATING THAT HE HAS DIARRHEA. OFFERED MAALOX AND PT TOOK AT THIS TIME. TOLD PT I WOULD RETURN FOR PM MEDS. WHEN OFFERED PM MEDS AGAIN PT REFUSED TO TAKE, PUSHING THEM AWAY.
[2022-08-31] MEDS: TEMAZEPAM 7.5 MG CAPSULE PO PRN (00:04)
[2022-08-31] MEDS: BLOOD SUGAR DIAGNOSTIC 1 EACH STRIP VI SCH ×2 (07:46→12:37)
--- NOTE | 2022-08-31 07:59 | NUR ---
SW Discharge Note: Patient will be discharged to [facility] [address] [facility], [place] [address] ([phone]). Please arrange ambulance transportation at 1PM. Spoke with Rebecca, Admin Coordinator at the facility who states they are ready to accept the patient today. SW attempted to contact pts daughter Bouchra ([phone]) and attempted to leave a voicemail. Patient is alert and oriented x1. Patient denies any suicidal or homicidal ideation. Patient will follow-up at the facility with Dr. Stevenson (psychiatrist) [address] [address]; ([phone]) and (Grocery Clerk) Dr. Ford [address] [facility] [address], [place] [address]; ([phone]). Patient presents with euthymic mood and congruent affect.
--- NOTE | 2022-08-31 07:59 | NUR ---
Greer: SW notified pt's daughter Bouchra ([phone]) that pt will be discharging today to [facility]. She is aware and VALENTIN safety planned with pt.
[2022-08-31 08:00] VITALS: BP 104/66
--- NOTE | 2022-08-31 08:00 | NUR ---
RN-NOTES PATIENT BS WAS 179 MG/DL,PATIENT REFUSED 3 UNITS OF R INSULIN DESPITE EXPLANATIONS RISK AND BENEFITS. OFFERED X3
[2022-08-31] MEDS: GLUCERNA SHAKE 237 ML CAN PO SCH (08:02)
[2022-08-31] MEDS: LINAGLIPTIN 5 MG TABLET PO SCH (08:22)
[2022-08-31] MEDS: METFORMIN 850 MG TABLET PO SCH (08:22)
[2022-08-31] MEDS: glipiZIDE 5 MG TABLET PO SCH (08:22)
[2022-08-31] MEDS: DIVALPROEX SODIUM 125 MG CAP.SPRINK PO SCH ×2 (08:23→12:41)
[2022-08-31] MEDS: QUETIAPINE FUMARATE 25 MG TABLET PO SCH (08:23)
--- NOTE | 2022-08-31 09:12 | NUR ---
Dr. Lopez gave an order to D/C hold and D/C to [facility] and to follow up with psych and medical doctors. Psychiatrist ordered to continue same meds including prn. Dr. Ford made aware of the discharge and reconciled meds to continue in the facility.
[2022-08-31] MEDS: INSULIN REGULAR, HUMAN 100 UNIT/ML 3 ML VIAL SQ PRN (12:44)
--- NOTE | 2022-08-31 13:25 | NUR ---
RN-DISCHARGE NOTES PATIENT HAD A DISCHARGE ORDER FROM DR. VALDES ( PSYCHIATRIST),DR. HUNT MEDICALLY CLEARED PATIENT FOR DISCHARGE. REPORT WAS GIVEN TO GARRETT ( FACILITY RN NURSE). PATIENT DID NOT VERBALIZE SI/HI,DENIES VISUAL AUDITORY HALLUCINATIONS AT THE TIME OF DISCHARGE. PATIENT LEFT THE UNIT A/OX1 ,CALM,NO ACUTE DISTRESS NOTED. PATIENT WAS GYMNASTICS INSTRUCTOR IN THE UNIT BY AMBULANCE VIA GURNEY WITH TWO STAFF ASSIST. DISCHARGED POCKET AND ALL BELONGINGS WAS GIVEN BACK TO THE PATIENT INCLUDING X1 BLACK CELLPHONE, BLACK WALLET X1 WATCH WITH PATIENT AND ALL OTHER BELONGINGS WAS GIVEN TO THE AMBULANCE STAFF INCLUDING DISCHARGE POCKET. Addendum: 09/01/22 at 0742 by MOE RIVAS RN Patient refused skin assessment and picture taken prior to discharge.
== END 2022-08-31 13:25 | DRG 885 ==
LOC: GPS 10:29
PROVIDERS: ADMIT Psychiatry & Neurology Psychosomatic Medicine; ATTEND Internal Medicine
DX: F31.9 Bipolar disorder, unspecified (principal); E11.65 Type 2 diabetes mellitus with hyperglycemia; R45.851 Suicidal ideations; F03.93 Unspecified dementia, unspecified severity, with mood disturbance; F03.94 Unspecified dementia, unspecified severity, with anxiety; F03.92 Unspecified dementia, unspecified severity, with psychotic disturbance; Z53.20 Procedure and treatment not carried out because of patient's decision for unspecified reasons; Z91.81 History of falling; Z91.14 Patient's other noncompliance with medication regimen; Z79.4 Long term (current) use of insulin; Z73.6 Limitation of activities due to disability; R53.1 Weakness; R27.8 Other lack of coordination
CPT/HCPCS: 36415; 80053-TC; 80061-TC; 80164-TC; 82962-TC; 83735-TC; 84100-TC; 84443-TC; 85025-TC; 87081-TC; J1815

== ENCOUNTER 2022-09-09 13:54 | Inpatient (IN) | payer MEDICARE, OTHER ==
[~2022-09-09] VITALS: Ht 167.6 cm; Wt 64.4 kg
[~2022-09-09 13:54] MED LIST: ASPI-1420 PO; ATOR10TA PO; CHOL200010 PO; INSU100V27 SQ; LOSA25TA27 PO; MONT10TA22 PO; ZOLP5TAB8 PO
--- NOTE | 2022-09-09 14:10 | NUR ---
CHEN RAMOS FROM [facility] FOR AGGRESSIVE BEHAVIOUR.
--- NOTE | 2022-09-09 14:24 | NUR ---
Daughter [phone] JOSUE BERRY
--- NOTE | 2022-09-09 14:29 | NUR ---
BLOOD SAMPLES OBTAINED
--- NOTE | 2022-09-09 14:36 | NUR ---
covid swab taken
--- NOTE | 2022-09-09 14:42 | NUR ---
DAUGHTER CALLED, VOICEMAIL LEFT (Mary Fishman [phone])
[2022-09-09 14:45] LABS: BASOPHILS % (AUTO) 0.3 % (0.0-2.0); EOSINOPHILS % (AUTO) 2.1 % (0.0-6.0); HEMATOCRIT 33 % (39-51); HEMOGLOBIN 11.1 g/dL (13.5-17.5); LYMPHOCYTES % (AUTO) 16.8 % (20.0-44.0); MEAN CORPUSCULAR HGB CONC 34 g/dl (31.0-36.0); MEAN CORPUSCULAR VOLUME 93 fL (80-96); MONOCYTES # (AUTO) 1.1 K/uL (0.1-1.30); MONOCYTES % (AUTO) 17.7 % (2.0-12.0); NEUTROPHILS # (AUTO) 3.9 K/uL (1.8-8.9); NEUTROPHILS % (AUTO) 63.1 % (43.0-81.0); PLATELET COUNT (AUTO) 211 K/uL (150-450); RED BLOOD CELL COUNT(AUTO) 3.51 MIL/uL (4.5-6.0); WHITE BLOOD COUNT (AUTO) 6.2 K/uL (4.3-11.0)
[2022-09-09 15:02] LABS: ALANINE AMINOTRANSFERASE 17 U/L (12-78); ALBUMIN 3.3 g/dL (3.4-5.0); ALKALINE PHOSPHATASE 83 U/L (46-116); ASPARTATE AMINOTRANSFERASE 19 U/L (15-37); BILIRUBIN,DIRECT 0.1 mg/dL (0.0-0.2); BILIRUBIN,TOTAL 0.3 mg/dL (0.2-1.0); CARBON DIOXIDE 29 mmol/L (21-32); CHLORIDE 100 mmol/L (98-107); CREATININE 1.1 mg/dL (0.6-1.3); POTASSIUM 4.2 mmol/L (3.5-5.1); SODIUM SERUM 136 mmol/L (136-145); TOTAL PROTEIN, SERUM 7.5 g/dL (6.4-8.2); UREA NITROGEN, BLOOD 23 mg/dL (7-18)
--- NOTE | 2022-09-09 15:04 | NUR ---
Sending facility contacted ([facility], ) who stated they would fax patient medication list to ER ([phone])
[2022-09-09 15:07] LABS: GLUCOSE 376 mg/dL (74-106)
[2022-09-09 15:08] LABS: ACETAMINOPHEN < 10 ug/ml (10-30); ALCOHOL, BLOOD < 3 mg/dL (0-0)
--- NOTE | 2022-09-09 15:10 | NUR ---
MEDICATION LIST RECEIVED Addendum: 09/09/22 at 1516 by KAILEY medication list added to chart
[2022-09-09] MEDS ORDERED: INSULIN REGULAR, HUMAN 100 UNIT/ML 3 ML VIAL SQ ONE (15:30)
[2022-09-09] MEDS ORDERED: INSULIN REGULAR, HUMAN 100 UNIT/ML 10 ML VIAL ONE (15:38)
[2022-09-09 15:42] LABS: LYMPHOCYTES % (MANUAL) 15 % (16-48); MONOCYTES % (MANUAL) 10 % (0-11.0); NEUTROPHILS % (MANUAL) 75 (42-76)
--- NOTE | 2022-09-09 15:43 | NUR ---
URINE SAMPLE OBTAINED
--- NOTE | 2022-09-09 15:49 | NUR ---
CALLED CRISIS CLINICAN TO EVALUATE PT. ART IS ON THE WAY
--- NOTE | 2022-09-09 16:05 | NUR ---
art at bedside for eval
--- NOTE | 2022-09-09 16:16 | NUR ---
Report given to ETHAN Kelly in [facility]
[2022-09-09] MEDS ORDERED: AMIN30LI2 PO (16:17)
[2022-09-09] MEDS ORDERED: QUET50TA PO (16:17)
[2022-09-09] MEDS ORDERED: LORA-259 PO (16:17)
[2022-09-09] MEDS ORDERED: LINA5TAB PO (16:17)
[2022-09-09] MEDS ORDERED: MAGN400O6 PO (16:17)
[2022-09-09] MEDS ORDERED: ASCO-352 PO (16:17)
[2022-09-09] MEDS ORDERED: ACET-868 PO ×2 (16:17)
[2022-09-09] MEDS ORDERED: INSU100V7 SQ (16:17)
[2022-09-09] MEDS ORDERED: DOCU-141 PO (16:17)
[2022-09-09] MEDS ORDERED: GLIP5TAB13 PO (16:17)
[2022-09-09] MEDS ORDERED: ARGI1POW13 PO (16:17)
[2022-09-09] MEDS ORDERED: ZINC220C6 PO (16:17)
[2022-09-09] MEDS ORDERED: QUET25TA PO (16:17)
[2022-09-09] MEDS ORDERED: METF-441 PO (16:17)
[2022-09-09] MEDS ORDERED: CRAN425C6 PO (16:17)
[2022-09-09] MEDS ORDERED: DIVA125C2 PO (16:17)
[2022-09-09] MEDS ORDERED: TEMA7.5C12 PO (16:17)
[2022-09-09] MEDS ORDERED: INSU100V3 SQ (16:17)
[2022-09-09] MEDS ORDERED: MULT-447 PO (16:17)
[2022-09-09 17:07] LABS: BILIRUBIN,URINE NEGATIVE (NEGATIVE); COLOR,URINE YELLOW (YELLOW); LEUKOCYTE ESTERASE ,URINE NEGATIVE (NEGATIVE); NITRITE, URINE NEGATIVE (NEGATIVE); PROTEIN,URINE TRACE mg/dl (NEGATIVE); UGLUCOSE 3+ mg/dL (NEGATIVE); UROBILINOGEN,URINE 0.2 EU/dL (0.2)
[2022-09-09 17:24] LABS: BACTERIA,URINE Few /HPF (None Seen); RBC,URINE 0-2 /HPF (0-2); SQUAMOUS EPITHELIAL CELL,UR Few /HPF (None Seen); WBC,URINE NONE SEEN /HPF (0-3)
--- NOTE | 2022-09-09 17:53 | NUR ---
IV removed. Catheter intact and site benign. Pressure and 4x4 applied to site. No bleeding noted. Patient transferred to [facility] via stretcher accompanied by RN and EMT without incident. All care endorsed to ETHAN Kelly
[2022-09-09] MEDS: ASCORBIC ACID 500 MG TABLET PO SCH (18:00)
[2022-09-09] MEDS ORDERED: DEXTROSE 50%-WATER 50 ML DISP.SYRIN IV PRN (18:00)
[2022-09-09] MEDS ORDERED: Medication Not On Formulary EA (Amino Acids/Protein Hydrolys (Pro-Stat Liquid) 30 ML) PO SCH (18:00)
[2022-09-09 18:24] VITALS: BP 151/76
[2022-09-09] MEDS ORDERED: BLOOD SUGAR DIAGNOSTIC 1 EACH STRIP IN ONE (18:30)
[2022-09-09] MEDS ORDERED: MAG HYDROX/AL HYDROX/SIMETH 30 ML UDC PO PRN (18:30)
[2022-09-09] MEDS ORDERED: MAGNESIUM HYDROXIDE 30 ML UDC PO PRN (18:30)
--- NOTE | 2022-09-09 18:40 | NUR ---
RN-NOTES [facility] ER STAFF BROUGHT IN 82 Y.O MALE PATIENT VIA GURNEY ,AWAKE A/O X2. PATIENT ON 5150 FOR GD ADULT. PATIENT IS UNDER THE CARE OF DR. VALDES ( PSYCHISTRIST) / DR. CHAVEZ COVERING FOR TODAY MADE AWARE WITH T.O TO PUT THE STANDING ORDER OF DR. VALDES. DIRECTOR ADULT KARRI ( LITHOPLATE MAKER) MADE AWARE OF THE ADMISSION AND RECONCILE PATIENT'S MEDICATIONS. PATIENT REFUSED TO SIGN ADMITTING PAPERS AND ACCU-CHECK . STATED" NO ,NO FINISH DOWN ALREADY". PATIENT'S DTR JONAS HATFIELD NOTIFIED ON THE ADMISSION. WILL ENDORSE TO THE INCOMING NURSE FOR THE ADMISSION PROCESS AND THE CONTINUITY OF CARE.
[2022-09-09 20:00] VITALS: BP 130/64
--- NOTE | 2022-09-09 21:35 | NUR ---
RN NOTES: REFUSED SKIN ASSESSMENT PT. REFUSED FULL BODY SKIN ASSESSMENT AND PHOTOS TAKEN , PT. BEHAVIOR VERY UNCOOPERATIVE , AGGRESSIVE , PARANOID , ENCOURAGED X3 , EXPLANIED RISKS AND BENEFITS BUT PT. STRONGLY REFUSED .
--- NOTE | 2022-09-09 21:37 | NUR ---
RN NOTES : ADMISSION NOTES: ADMITTED THIS 82Y/O MALE PATIENT ADMITTED FROM [facility], INITIALLY FROM [facility]. ADMITTED TO 5150 HOLD PER HOLD GD, DUE TO AGITATION AND NON COMPLIANT, HE BLAMES OTHER, HE IS POOR HISTORIAN , UPON FACE TO FACE ASSESSMENT PATIENT IS A&OX3 ANXIOUS EASILY AGITATED ,DISORGNIZED, DISHELVED,POOR HYGINE, UNCOOPERTIVE,POOR DECISION MAKING,DENIES SI /HI AT THIS TIME, PT. IS POOR HISTORIAN, POOR INSIGHT ,POOR JUDGEMENT , BOTH MD AWARE AND NOTIFIED OF THE ADMISSION, BELONGINGS CONTRABAND WERE DONE , PT. REFUSED SIGNS ADMISSION CONSENT PAPER DUE TO ANXIOUS,DISORGNIZED, PT. RIGHTS DISCUSS BY DIRECTOR OF WEB MARKETING , PROVIDE THE PT. WITH HANDBOOK, AND MEDICATIONS GUIDE, ENVIRONMENTAL SAFETY CHECK DONE, ENCOURAGED PT. VERBALIZED ANY FEELING CONCERN TO STAFF, ORIENT TO UNIT POLICY, NO ACUTE DISTRESS NOTED,VITAL SIGNS WNL ,DENIES ANY PAIN AT THIS TIME,WILL CONTINUE TO MONITOR FOR Q15 SAFETY AND BEHAVIOR.
[2022-09-09] MEDS: INSULIN GLARGINE, 100 UNIT/ML CARTRIDGE SQ SCH (22:00)
[2022-09-09] MEDS: BLOOD SUGAR DIAGNOSTIC 1 EACH STRIP IN SCH (22:02)
[2022-09-09] MEDS: INSULIN REGULAR, HUMAN 100 UNIT/ML 3 ML VIAL SQ PRN (22:02)
--- NOTE | 2022-09-09 22:03 | NUR ---
RN-NOTES; REFUSED INSULLIN COVERAGE PATIENT BS WAS 311MG/DL, PATIENT REFUSED COVERAGE OF 8 UNITS OF REGULAR INSULIN. PER PT. STATED" I KNOW MY SELF THAT'S GOOD BLOOD SUGAR, EXPLAINED RISK AND BENEFITS BUT STILL REFUSED. OFFERED X3 , PT. BEHAVIOUR UNCOOPERTIVE , ANXIOUS,PARANOID, WILL CONTINUE WITH CARE.
[2022-09-10] MEDS: LORAZEPAM 0.5 MG TABLET PO PRN ×2 (00:59→09:31)
--- NOTE | 2022-09-10 01:00 | NUR ---
RN NOTES: ANXIETY PT. C/O FEELING ANXIOUS ,PARANOID RESTLESS, PRN ATIVAN 0.5 MG GIVEN , WILL CONTINUE TO MONITOR.
[2022-09-10] MEDS: BLOOD SUGAR DIAGNOSTIC 1 EACH STRIP IN SCH ×4 (08:05→22:07)
[2022-09-10] MEDS: LINAGLIPTIN 5 MG TABLET PO SCH (08:52)
[2022-09-10] MEDS: METFORMIN 850 MG TABLET PO SCH ×2 (08:55→16:20)
[2022-09-10] MEDS: DOCUSATE SODIUM 100 MG CAPSULE PO SCH (08:56)
[2022-09-10] MEDS ORDERED: Medication Not On Formulary EA (Cranberry Extract (Cranberry) 425 MG) PO SCH (09:00)
[2022-09-10] MEDS ORDERED: Medication Not On Formulary EA (Arginine/Ascorbate Sod/Vite AC (Arginaid Powder) 1 EACH) PO SCH (09:00)
--- NOTE | 2022-09-10 09:32 | NUR ---
RN- NOTES ATIVAN ADMINISTERED DUE TO PATIENT ANXIETY, AND YELLING/GRABBING STAFF.
[2022-09-10] MEDS: QUETIAPINE FUMARATE 25 MG TABLET PO SCH ×3 (11:08→21:20)
[2022-09-10] MEDS: INSULIN REGULAR, HUMAN 100 UNIT/ML 3 ML VIAL SQ PRN ×3 (12:29→22:18)
--- NOTE | 2022-09-10 12:29 | NUR ---
RN- NOTES GLUCOSE 463 NOTED. MD NOTIFIED AND ORDERED 20 UNITS OF INSULIN REGULAR SQ. INSULIN ADMINISTERED.
[2022-09-10] MEDS: DIVALPROEX SODIUM 125 MG CAP.SPRINK PO SCH ×3 (12:43→21:20)
--- NOTE | 2022-09-10 13:30 | NUR ---
RN- NOTES BLOOD GLUCOSE RE CHECKED WITH A BLOOD GLUCOSE LEVEL OF 467 NOTED AFTER 20 UNITS OF INSULIN ADMINISTERED. MD ZENG NOTIFIED.
[2022-09-10 16:00] VITALS: BP 123/62
[2022-09-10] MEDS: glipiZIDE 5 MG TABLET PO SCH (16:20)
[2022-09-10] MEDS: ASCORBIC ACID 500 MG TABLET PO SCH (16:20)
--- NOTE | 2022-09-10 16:52 | NUR ---
RN- NOTES PATIENT REFUSED BLOOD GLUCOSE CHECK, OFFERED WITH EDUCATION X3.
[2022-09-10] MEDS: ZINC SULFATE 220 MG CAPSULE PO SCH (17:14)
[2022-09-10] MEDS: PROSTAT (PYXIS) 30 ML UDC PO SCH (17:15)
--- NOTE | 2022-09-10 17:23 | NUR ---
RN- NOTES PATIENT ENCOURAGED TO HAVE BLOOD GLUCOSE CHECKED. BLOOD GLUCOSE NOTED AT 140.
--- NOTE | 2022-09-10 18:34 | NUR ---
RN- CLOSING NOTES PATIENT AWAKE, SITTING IN THE AYAZ CHAIR. A/O X2. PT. IS GUARDED, ANXIOUS, HYPERVERBAL, AGGRESSIVE, NEEDY, AND CONTINUOUSLY ATTEMPTS TO OPEN THE UNIT DOORS. PATIENT IS MEDICATION RESISTANT BUT TOOK ALL P.O MEDICATIONS. BLOOD GLUCOSE NOTED AT 463 AT 1200, ORDER OF 20 UNITS VIA SLIDING SCALE CARRIED OUT. BLOOD GLUCOSE NOTED AT 439 AT 1430, ORDER OF 10 UNITS VIA SLIDING SCALE CARRIED OUT. AMBULATORY WITH NO ASSISTANCE AND DENIES SI/HI AT THIS TIME. WILL CONTINUE TO MONITOR Q 15 MINUTES FOR SAFETY AND BEHAVIOR.
[2022-09-10 20:25] VITALS: BP 104/70
[2022-09-10] MEDS: TEMAZEPAM 7.5 MG CAPSULE PO PRN (21:21)
--- NOTE | 2022-09-10 22:00 | NUR ---
Nurses Notes: @2200 pts BS was ck it was 109, no regular insulin coverage given.
[2022-09-10] MEDS: INSULIN GLARGINE, 100 UNIT/ML CARTRIDGE SQ SCH (22:21)
--- NOTE | 2022-09-11 07:17 | NUR ---
GPS RN OPENING NOTES: RECEIVED PATIENT AMBULATING DOWN THE ALONG THE HALLWAY ALERT, ORIENTED X2 WITH PERIODS OF CONFUSION. NO RESPIRATORY DISTRESS NOTED. BREATHING EVEN AND UNLABORED. ON RA, TOLERATING WELL. PATIENT IS NEEDY, ANXIOUS, GUARDED, HYPERVERBAL, EASILY AGITATED AND UNABLE TO FOCUS. PATIENT REQUIRES FREQUENT REDIRECTION. PATIENT DENIES SI/HI AT THIS TIME. ALL SAFETY MEASURES IN PLACE. WILL CONTINUE TO MONITOR Q 15 MINUTES FOR SAFETY AND BEHAVIOR.
[2022-09-11] MEDS: INSULIN REGULAR, HUMAN 100 UNIT/ML 3 ML VIAL SQ PRN ×3 (07:49→21:32)
[2022-09-11] MEDS: BLOOD SUGAR DIAGNOSTIC 1 EACH STRIP IN SCH ×4 (07:51→21:36)
[2022-09-11 08:00] VITALS: BP 122/77
[2022-09-11] MEDS: DIVALPROEX SODIUM 125 MG CAP.SPRINK PO SCH ×4 (08:38→20:20)
[2022-09-11] MEDS: DOCUSATE SODIUM 100 MG CAPSULE PO SCH (09:00)
[2022-09-11] MEDS: METFORMIN 850 MG TABLET PO SCH ×2 (09:00→16:41)
[2022-09-11] MEDS: glipiZIDE 5 MG TABLET PO SCH ×2 (09:00→16:33)
[2022-09-11] MEDS: LINAGLIPTIN 5 MG TABLET PO SCH (09:00)
[2022-09-11] MEDS: QUETIAPINE FUMARATE 25 MG TABLET PO SCH ×3 (09:37→21:17)
[2022-09-11] MEDS: LORAZEPAM 0.5 MG TABLET PO PRN ×2 (09:52→21:35)
--- NOTE | 2022-09-11 10:12 | NUR ---
VALENTIN Clinical Note: Pt placed on a 5150 hold for GD. Per hold, pt was brought to the hospital for being aggressive at his nursing facility [facility]. Patient currently resides at [facility] [place] [address] ([phone]). Shelly waite from [facility] stated that pt is welcomed back when stable. VALENTIN will contact pt's daughter Mary ([phone]) to discuss treatment/discharge plan.
--- NOTE | 2022-09-11 10:12 | NUR ---
VALENTIN Initial Discharge Note: Patient currently resides at [facility] [id number] [place] [id number] ([phone]). Shelly waite from [facility] stated that pt is welcomed back when stable. VALENTIN will contact pt's daughter Mary ([phone]) to discuss treatment/discharge plan. VALENTIN will work with the MD, family, and treatment team.
--- NOTE | 2022-09-11 10:24 | NUR ---
Treatment Plan: Pt refused to sign treatment plan and was labile.
[2022-09-11] MEDS: ACETAMINOPHEN 325 MG TABLET PO PRN ×2 (12:36→21:35)
--- NOTE | 2022-09-11 14:53 | NUR ---
VALENTIN Family Contact: VALENTIN contacted pt's daughter Mary ([phone]) and left a detailed voicemail.
[2022-09-11 16:00] VITALS: BP 102/56
[2022-09-11] MEDS: ZINC SULFATE 220 MG CAPSULE PO SCH (17:06)
[2022-09-11] MEDS: ASCORBIC ACID 500 MG TABLET PO SCH (17:07)
[2022-09-11] MEDS: PROSTAT (PYXIS) 30 ML UDC PO SCH (17:08)
--- NOTE | 2022-09-11 18:14 | NUR ---
GPS RN CLOSING NOTES: PATIENT AMBULATING DOWN THE HALLWAY ALERT, ORIENTED X2 WITH PERIODS OF CONFUSION. NO RESPIRATORY DISTRESS NOTED THROUGHOUT SHIFT. ON RA, TOLERATING WELL. PATIENT IS HYPERVERBAL, NEEDY, ANXIOUS, GUARDED, EASILY FRUSTRATED AND UNABLE TO FOCUS BUT NO S/S AGITATION NOTED. PATIENT REQUIRES FREQUENT REDIRECTION. PATIENT TOOK HIS PSYCH MEDICATIONS BUT REFUSED HIS MEDICATIONS FOR DM IN THE MORNING. TRIED TO CONTAC DAUGHTER BOB @ [phone] TO NO AVAIL. PATIENT DENIES SI/HI AT THIS TIME. ALL SAFETY MEASURES IMPLEMENTED. ALL NEEDS MET AND ANTICIPATED. WILL ENDORSE TO INCOMING NURSE FOR CONTINUITY OF CARE.
--- NOTE | 2022-09-11 20:00 | NUR ---
reservations agent notes patient complaint of upset stomach, maalox given as ordered.
[2022-09-11 20:19] VITALS: BP 129/61
[2022-09-11] MEDS: INSULIN GLARGINE, 100 UNIT/ML CARTRIDGE SQ SCH (21:31)
--- NOTE | 2022-09-11 21:31 | NUR ---
briquette maker notes pt saw back and fort to the hallways , seems so anxious . screaming complaining of abdominal pain , assessment done , skin cold to touch, vital signs checked as ff: BP 152/85, heart rate 100, O2 sat 97%, blood sugar 364. PRN medicines given as ordered, Encourage her to stay in bed feeling nauseated. notify singer songwriter .
[2022-09-11] MEDS: TEMAZEPAM 7.5 MG CAPSULE PO PRN (21:36)
--- NOTE | 2022-09-11 21:36 | NUR ---
design cell engineer notes MOM po given but patient spit out . Lantus 12 unit given plus regular insulin 10 units dara SQ as ordered. Zofran administered as well for nausea. Kept pt on semi fowlers position and kept him warm and comfortable for safety. will continue monitoring.
[2022-09-11] MEDS ORDERED: ONDANSETRON 4 MG TAB.RAPDIS SL PRN (22:30)
--- NOTE | 2022-09-12 | NUR ---
treasury analyst notes pt sleeping at this time. no nause no vomiting noted. kept him warm and comfortable at all times. bed alarm set for safety. will continue monitoring.
--- NOTE | 2022-09-12 06:43 | NUR ---
PLATE GLASS INSTALLER HELPER NOTES PT WOKE UP AND WALKING TO THE HALLWAY AND WONDERING AND ASKING FOR HER DAUGHTER , ASKING FOR HIS CLOTHES ASKING FOR THE PHONE SO SHE CALL HIS DAUGHTER. I SPOKE TO HIM THAT SHE CALLED HIS DAUGHTER LATER BECAUSE MAYBE SHE'S STILL SLEEPING. HE KEEP THE PHONE WITH HIM AND BACK TO HIS ROOM. NO SIGNS OF ANY AGITATION , NO DISTRESS NO SIGNS OF ANY DISCOMFORT NOTED AT THIS TIME. WILL ENDORSE TO AM NURSE FOR CONTINUITY OF CARE.
--- NOTE | 2022-09-12 07:30 | NUR ---
RN NOTES PT AWAKE, ALERT TO SELF, WITH CONFUSION, ASKING STAFF TO OPEN THE CABINET SO HE CAN REMOVE HIS BELONGINGS, GETS AGITATED, REALITY ORIENTATION PROVIDED, NEEDS ATTENDED.
[2022-09-12 08:00] VITALS: BP 130/83
[2022-09-12] MEDS: LINAGLIPTIN 5 MG TABLET PO SCH (08:01)
[2022-09-12] MEDS: METFORMIN 850 MG TABLET PO SCH ×3 (08:01→17:58)
[2022-09-12] MEDS: QUETIAPINE FUMARATE 25 MG TABLET PO SCH ×5 (08:01→21:31)
[2022-09-12] MEDS: DIVALPROEX SODIUM 125 MG CAP.SPRINK PO SCH ×5 (08:02→21:00)
[2022-09-12] MEDS: LORAZEPAM 0.5 MG TABLET PO PRN ×2 (08:02→17:57)
[2022-09-12] MEDS: DOCUSATE SODIUM 100 MG CAPSULE PO SCH (08:02)
[2022-09-12] MEDS: glipiZIDE 5 MG TABLET PO SCH ×3 (08:02→17:57)
[2022-09-12] MEDS: BLOOD SUGAR DIAGNOSTIC 1 EACH STRIP IN SCH ×4 (08:58→22:02)
[2022-09-12] MEDS: INSULIN REGULAR, HUMAN 100 UNIT/ML 3 ML VIAL SQ PRN ×3 (11:43→22:02)
--- NOTE | 2022-09-12 11:45 | NUR ---
RN NOTES PT'S BS IS 444, WAS 209 THIS MORNING BUT REFUSED INSULIN ADMINISTRATION, GETS AGITATED, 10 UNITS INSULIN GIVEN, MD INFORMED.
--- NOTE | 2022-09-12 14:50 | NUR ---
Patient voluntarily accept Zyprexa 5mg IM x1 given will continue to monitor .
--- NOTE | 2022-09-12 14:54 | NUR ---
RN NOTES PT IS AGITATED, UNABLE TO KEEP STILL, ALWAYS BY THE DOOR, WANTS TO GET OUT OF THE UNIT, DR. VALDES INFORMED, ORDERED ZYPREXA 5MG IM ONE TIME, MED ADMINISTERED ORDERED.
--- NOTE | 2022-09-12 14:57 | NUR ---
RN NOTES PT ASSISTED TO GERICHAIR INSTRUCTED BY DR. VALDES, SAFETY PRECAUTIONS OBSERVED.
[2022-09-12] MEDS ORDERED: OLANZAPINE 10 MG VIAL IM ONE (15:00)
[2022-09-12 16:00] VITALS: BP 129/71
[2022-09-12] MEDS: ZINC SULFATE 220 MG CAPSULE PO SCH ×2 (17:57→18:00)
[2022-09-12] MEDS: ASCORBIC ACID 500 MG TABLET PO SCH ×2 (17:58→18:00)
[2022-09-12] MEDS ORDERED: LORAZEPAM INJ 2 MG/ML VIAL IM STA (17:59)
[2022-09-12] MEDS: PROSTAT (PYXIS) 30 ML UDC PO SCH (18:00)
--- NOTE | 2022-09-12 18:08 | NUR ---
RN NOTES PT REFUSED AND SPIT ALL HIS PM MEDS INCLUDING ATIVAN PO, DR. VALDES INFORMED, ORDERED FOR ATIVAN IM ONE TIME.
--- NOTE | 2022-09-12 18:36 | NUR ---
RN NOTES PT AWAKE, SITTING AT [facility], ATIVAN IM GIVEN ORDERED, TOLERATED WELL, QUIET AT THIS TIME, ASSISTED WITH DINNER, NEEDS ATTENDED.
[2022-09-12 20:25] VITALS: BP 147/68
[2022-09-12] MEDS: TEMAZEPAM 7.5 MG CAPSULE PO PRN (21:39)
--- NOTE | 2022-09-12 21:40 | NUR ---
AGITATED Patient agitated, trying get out from [facility]. Spit out medication Depakote and Restoril, unable to sleep, confused unable to educate. Medication wasted as packet was opened.
[2022-09-12] MEDS: INSULIN GLARGINE, 100 UNIT/ML CARTRIDGE SQ SCH (22:01)
--- NOTE | 2022-09-13 05:30 | NUR ---
END OF SHIFT REPORT Patient restless at times, confused. Unable to educate d/t mental behavior. Uncooperative with treatment and medication, denies pain. Fall precaution maintained. Plan for continue inpatient [facility] hospitalization, Behavior management per psychiatry. Will endorse to oncoming RN.
[2022-09-13] MEDS: BLOOD SUGAR DIAGNOSTIC 1 EACH STRIP IN SCH ×4 (07:49→22:18)
[2022-09-13 08:00] VITALS: BP 103/68
[2022-09-13] MEDS: QUETIAPINE FUMARATE 25 MG TABLET PO SCH ×4 (08:08→21:45)
[2022-09-13] MEDS: DIVALPROEX SODIUM 125 MG CAP.SPRINK PO SCH ×4 (08:09→21:44)
[2022-09-13] MEDS: DOCUSATE SODIUM 100 MG CAPSULE PO SCH (08:09)
[2022-09-13] MEDS: LINAGLIPTIN 5 MG TABLET PO SCH (08:10)
[2022-09-13] MEDS: glipiZIDE 5 MG TABLET PO SCH ×2 (08:10→17:14)
[2022-09-13] MEDS: METFORMIN 850 MG TABLET PO SCH ×2 (08:10→17:14)
[2022-09-13] MEDS: GLUCERNA SHAKE 237 ML CAN PO SCH (08:10)
[2022-09-13] MEDS: LORAZEPAM 0.5 MG TABLET PO PRN (08:26)
--- NOTE | 2022-09-13 08:26 | NUR ---
NURSE NOTE: PT ANXIOUS AT THIS TIME. ATIVAN PO ADMINISTERED ORDERED. WILL CONT TO MONITOR.
[2022-09-13] MEDS: INSULIN REGULAR, HUMAN 100 UNIT/ML 3 ML VIAL SQ PRN ×3 (08:30→22:55)
--- NOTE | 2022-09-13 09:26 | NUR ---
NURSE NOTE: PT CALM AT THIS TIME. ATIVAN EFFECTIVE. WILL CONT TO MONITOR.
[2022-09-13 16:00] VITALS: BP 112/71
[2022-09-13] MEDS: ZINC SULFATE 220 MG CAPSULE PO SCH (17:15)
[2022-09-13] MEDS: PROSTAT (PYXIS) 30 ML UDC PO SCH (17:15)
[2022-09-13] MEDS: ASCORBIC ACID 500 MG TABLET PO SCH (17:15)
[2022-09-13 20:37] VITALS: BP 121/90
[2022-09-13] MEDS: INSULIN GLARGINE, 100 UNIT/ML CARTRIDGE SQ SCH (22:22)
--- NOTE | 2022-09-13 22:30 | NUR ---
RN NOTE PT BS AT 421. DR ZENG NOTIFIED AND ORDERED TO GIVE 16 UNITS OF REGULAR INSULIN COVERAGE AND TO CHANGE PT SLIDING SCALE ACHS FROM MILD TO MODERATE. INSULIN GIVEN PRESCRIBED, TOLERATED WELL. Addendum: 09/13/22 at 2257 by FLORES VILLASENOR RN CORRECTION: GIVE 16 UNITS OF REGULAR INSULIN ONCE PER DR ZENG'S ORDER.
[2022-09-13] MEDS ORDERED: DEXTROSE 50%-WATER 50 ML DISP.SYRIN IV PRN (23:00)
--- NOTE | 2022-09-14 02:15 | NUR ---
RN NOTE PT BLOOD SUGAR MEASURED AT 43 ON REASSESSMENT. PT GIVEN VANILLA PUDDING AND 3 CUPS OF ORANGE JUICE. BLOOD SUGAR RECHECKED AFTER 15 MINS, SHOWED 85. DR ZENG NOTIFIED AND ORDERED TO RECHECK BS AGAIN AFTER AN HOUR.
--- NOTE | 2022-09-14 04:21 | NUR ---
RN NOTE BLOOD GLUCOSE RECHECK AFTER 1 HOUR: 53. PT STARTED IV ACCESS ON L HAND #24G, GIVEN DEXTROSE PER PROTOCOL/ORDERS. DR ZENG NOTIFIED, ORDERED TO GIVE SANDWICH TO PATIENT. PT ABLE TO TOLERATED BREAD WITH PEANUT BUTTER, ORANGE JUICE, PUDDING. BLOOD GLUCOSE REASSESSMENT AFTER 30 MINS: 188. DR ZENG NOTIFIED AND NO NEW ORDERS. WILL CONTINUE TO MONITOR PATIENT. Addendum: 09/14/22 at 0425 by FLORES VILLASENOR RN PATIENT VITAL SIGNS STABLE. DEXTROSE STILL RUNNING AND PT SLEEPING AT THIS TIME. Addendum: 09/14/22 at 0440 by FLORES VILLASENOR RN CORRECTION: BLOOD SUGAR WAS 51, NOT 53.
[2022-09-14 06:22] LABS: BASOPHILS % (AUTO) 0.3 % (0.0-2.0); EOSINOPHILS % (AUTO) 4.7 % (0.0-6.0); HEMATOCRIT 33 % (39-51); HEMOGLOBIN 10.9 g/dL (13.5-17.5); LYMPHOCYTES # (AUTO) 1.1 K/uL (0.8-4.8); MEAN CORPUSCULAR HGB CONC 33 g/dl (31.0-36.0); MEAN CORPUSCULAR VOLUME 94 fL (80-96); MONOCYTES % (AUTO) 19.2 % (2.0-12.0); NEUTROPHILS # (AUTO) 2.7 K/uL (1.8-8.9); NEUTROPHILS % (AUTO) 53.8 % (43.0-81.0); PLATELET COUNT (AUTO) 178 K/uL (150-450); RED BLOOD CELL COUNT(AUTO) 3.53 MIL/uL (4.5-6.0)
[2022-09-14 06:46] LABS: ALANINE AMINOTRANSFERASE 15 U/L (12-78); ALBUMIN 2.9 g/dL (3.4-5.0); ALKALINE PHOSPHATASE 73 U/L (46-116); ASPARTATE AMINOTRANSFERASE 25 U/L (15-37); BILIRUBIN,TOTAL 0.3 mg/dL (0.2-1.0); CALCIUM, SERUM 8.9 mg/dL (8.5-10.1); CARBON DIOXIDE 26 mmol/L (21-32); CHLORIDE 105 mmol/L (98-107); CREATININE 1.1 mg/dL (0.6-1.3); GLUCOSE 208 mg/dL (74-106); SODIUM SERUM 140 mmol/L (136-145); TOTAL PROTEIN, SERUM 6.5 g/dL (6.4-8.2); UREA NITROGEN, BLOOD 20 mg/dL (7-18)
[2022-09-14 06:58] LABS: VALPROIC ACID 56 ug/mL (50-100)
--- NOTE | 2022-09-14 07:26 | NUR ---
GPS RN CLOSING NOTES PT SITTING IN BED AT THIS TIME. A/O X2, ABLE TO MAKE NEEDS KNOWN. STARTED SHIFT WITH SOME CONFUSION AND RESTLESSNESS, SAT IN GERICHAIR UNTIL BEFORE MIDNIGHT. BLOOD SUGAR WAS 421, PROTOCOL INITIATED. BLOOD SUGAR MONITORED THROUGHOUT SHIFT AND MD NOTIFIED, ORDERS DONE PRESCRIBED (SEE NURSING NOTES). PT CALM IN BEDROOM AT THIS TIME, STABLE ON RA. DENIES ANY PAIN. IV ACCESS L HAND #24G, SL. WILL ENDORSE ZHOU TO DAY SHIFT NURSE.
[2022-09-14] MEDS: BLOOD SUGAR DIAGNOSTIC 1 EACH STRIP VI SCH ×4 (07:32→22:00)
[2022-09-14] MEDS: INSULIN REGULAR, HUMAN 100 UNIT/ML 3 ML VIAL SQ PRN ×5 (07:35→22:33)
[2022-09-14 08:00] VITALS: BP 140/62
[2022-09-14] MEDS: QUETIAPINE FUMARATE 25 MG TABLET PO SCH ×3 (08:31→21:59)
[2022-09-14] MEDS: DOCUSATE SODIUM 100 MG CAPSULE PO SCH (08:31)
[2022-09-14] MEDS: DIVALPROEX SODIUM 125 MG CAP.SPRINK PO SCH ×4 (08:31→20:34)
[2022-09-14] MEDS: METFORMIN 850 MG TABLET PO SCH ×2 (08:32→16:19)
[2022-09-14] MEDS: glipiZIDE 5 MG TABLET PO SCH ×2 (08:32→16:20)
[2022-09-14] MEDS: LINAGLIPTIN 5 MG TABLET PO SCH (08:32)
[2022-09-14] MEDS: GLUCERNA SHAKE 237 ML CAN PO SCH (08:33)
[2022-09-14] MEDS: risperiDONE-M 0.5 MG TAB.RAPDIS PO SCH ×2 (13:11→16:19)
[2022-09-14 16:00] VITALS: BP 103/63
[2022-09-14 16:47] LABS: EOSINOPHILS % (MANUAL) 5 % (0-4); LYMPHOCYTES % (MANUAL) 26 % (16-48); MONOCYTES % (MANUAL) 15 % (0-11.0); NEUTROPHILS % (MANUAL) 54 (42-76)
--- NOTE | 2022-09-14 17:01 | NUR ---
RN NOTES PT WITH BLOOD SUGAR OF 198 MG/DL AND REFUSED REGULAR INSULIN COVERAGE PER SLIDING SCALE.
[2022-09-14] MEDS: ZINC SULFATE 220 MG CAPSULE PO SCH (17:08)
[2022-09-14] MEDS: ASCORBIC ACID 500 MG TABLET PO SCH (17:08)
[2022-09-14 20:00] VITALS: BP 116/78
[2022-09-14] MEDS: INSULIN GLARGINE, 100 UNIT/ML CARTRIDGE SQ SCH ×2 (22:00→22:16)
--- NOTE | 2022-09-14 22:34 | NUR ---
RN NOTE BLOOD SUGAR CHECKED AND THE BS IS 199. PT REFUSED THE REGULAR INSULIN PER SLIDING SCALE AND THE SCHEDULED LANTUS DUE AT 2200. EDUCATED THE PT OF THE RISK OF NOT RECEIVING THE INSULIN AND TRIED OFFERING HIM X 3, PT STILL REFUSED.
[2022-09-15] MEDS: BLOOD SUGAR DIAGNOSTIC 1 EACH STRIP VI SCH ×5 (07:30→21:27)
--- NOTE | 2022-09-15 07:35 | NUR ---
RN NOTE BLOOD SUGAR CHECKED RESULTED TO 222. PT REFUSED 6 UNITS OF REGULAR INSULIN PER SLIDING SCALE
[2022-09-15 08:00] VITALS: BP 113/79
[2022-09-15] MEDS: glipiZIDE 5 MG TABLET PO SCH ×2 (08:41→17:26)
[2022-09-15] MEDS: DIVALPROEX SODIUM 125 MG CAP.SPRINK PO SCH ×3 (08:41→17:25)
[2022-09-15] MEDS: METFORMIN 850 MG TABLET PO SCH ×2 (08:41→17:25)
[2022-09-15] MEDS: risperiDONE-M 0.5 MG TAB.RAPDIS PO SCH ×3 (08:41→17:25)
[2022-09-15] MEDS: DOCUSATE SODIUM 100 MG CAPSULE PO SCH (08:41)
[2022-09-15] MEDS: LINAGLIPTIN 5 MG TABLET PO SCH (08:41)
[2022-09-15] MEDS: GLUCERNA SHAKE 237 ML CAN PO SCH (08:42)
--- NOTE | 2022-09-15 08:50 | NUR ---
PATIENT REFUSED REG INSULIN ON BLOOD GLUCOSE READING OF 222. WILL CONTINUE TO MONITOR THE PATIENT
[2022-09-15] MEDS: INSULIN REGULAR, HUMAN 100 UNIT/ML 3 ML VIAL SQ PRN ×3 (09:11→21:29)
--- NOTE | 2022-09-15 10:39 | NUR ---
Court Notification: VALENTIN contacted pt's daughter Mary ([phone]) and left a voicemail of 1040 hearing.
--- NOTE | 2022-09-15 10:39 | NUR ---
Court Hearing: Patient's court hearing for 3830 was today and it was upheld for GD and danger to others.
--- NOTE | 2022-09-15 12:40 | NUR ---
PATIENT REFUSED 6 UNIT INSULIN SHOT, AFTER AGREEING EARLIER SINCE BLOOD GLUCOSE READING WAS 241 BEFORE HIS LUNCH. WILL CONTINUE TO MONITOR
[2022-09-15 16:00] VITALS: BP 150/71
--- NOTE | 2022-09-15 17:05 | NUR ---
PATIENT REFUSED REGULAR INSULIN ON GLUCOSE READING OF 176 TAKEN JUST BEFORE DINNER. GLUCOSE READING VERIFIED FROM THE [facility] AWAITING DELAYED TRANSMITTAL. CHARGE NURSE AWARE. IT HAS BEEN OBSERVED THAT PATIENT WOULD REFUSE REG INSULIN WHENEVER RESULT OF GLUCOSE IS CLOSER OR BELOW 200. PREVIOUS DIRECTOR BUSINESS DEVELOPMENT NURSE HAD THE SAME OBSERVATION. CHARGE NURSE AWARE.
[2022-09-15] MEDS: ASCORBIC ACID 500 MG TABLET PO SCH (17:25)
[2022-09-15] MEDS: ZINC SULFATE 220 MG CAPSULE PO SCH (17:27)
--- NOTE | 2022-09-15 19:56 | NUR ---
RN NOTES: PATIENT RESTING IN ROOM , ANXIOUS ,HYPERVERBAL , NEEDY, DEMENDANDING DISORGANIZED, PARANOID, EASILY AGITAED , FORGETFUL, DISHELVED ,FOCUS ON DISCHARGE AND CHECKING BLOOD SUGAR, NEEDS FREQUENTLY REDIRECTIONS,NO S/S OF APPARENT DISTRESS AT THIS TIME. NO ACUTE DISTRESS NOTED ,COMPLIANT WITH MEDICATIONS. PATIENT DENIES SUICIDAL AND HOMICIDAL IDEATIONS AT THIS TIME. SAFETY PRECAUTIONS MAINTAINED WILL CONTINUE TO MONITOR THIS PATIENT Q15 MINUTES WITH THE HELP OF STAFF TO MAINTAIN SAFETY.
[2022-09-15 21:16] VITALS: BP 107/65
[2022-09-15] MEDS: INSULIN GLARGINE, 100 UNIT/ML CARTRIDGE SQ SCH (21:30)
--- NOTE | 2022-09-15 21:42 | NUR ---
RN-NOTES; REFUSED REGULAR INSULLIN COVERAGE AND REFUSED LANTUS PATIENT BS WAS 208MG/DL, PATIENT REFUSED COVERAGE OF 6 UNITS OF REGULAR INSULIN AND REFUSED 12 UNITS OF LANTUS . PER PT. STATED" I KNOW MY SELF THAT'S GOOD BLOOD SUGAR, MY BLOOD SUGAR DROPPED VERY EASILY ,EXPLAINED RISK AND BENEFITS BUT STILL REFUSED. OFFERED X3 , CHARGE NURSE MADE AWARE ,WILL CONTINUE WITH CARE.
[2022-09-15] MEDS ORDERED: risperiDONE 1 MG TABLET PO SCH (22:00)
[2022-09-16] MEDS: BLOOD SUGAR DIAGNOSTIC 1 EACH STRIP VI SCH ×4 (07:35→21:34)
[2022-09-16 08:00] VITALS: BP 148/68
[2022-09-16] MEDS: LINAGLIPTIN 5 MG TABLET PO SCH (08:21)
[2022-09-16] MEDS: glipiZIDE 5 MG TABLET PO SCH ×2 (08:21→17:17)
[2022-09-16] MEDS: DIVALPROEX SODIUM 125 MG CAP.SPRINK PO SCH ×3 (08:21→17:17)
[2022-09-16] MEDS: risperiDONE-M 0.5 MG TAB.RAPDIS PO SCH ×2 (08:21→13:25)
[2022-09-16] MEDS: METFORMIN 850 MG TABLET PO SCH ×2 (08:21→17:17)
[2022-09-16] MEDS: DOCUSATE SODIUM 100 MG CAPSULE PO SCH (08:21)
[2022-09-16] MEDS: GLUCERNA SHAKE 237 ML CAN PO SCH (08:22)
[2022-09-16 16:00] VITALS: BP 136/61
[2022-09-16] MEDS: risperiDONE 1 MG TABLET PO SCH ×2 (17:17→20:44)
[2022-09-16] MEDS: ASCORBIC ACID 500 MG TABLET PO SCH (17:17)
[2022-09-16] MEDS: ZINC SULFATE 220 MG CAPSULE PO SCH (17:17)
--- NOTE | 2022-09-16 18:01 | NUR ---
RN-NOTES PATIENT IN BED INTERMITTENTLY SLEEPING WITH BREATHING EVEN AND NONLABORED EASILY AROUSED,A/O X2,NO ACUTE DISTRESS NOTED.SELECTIVE WITH MEDICATIONS. BS WAS 132 MG/DL BEFORE DINNER, REFUSED 2 UNITS OF R INSULIN DESPITE EXPLANATIONS RISK AND BENEFITS. STATED" NO NO INSULIN".OFFERED X3 STILL REFUSED.PATIENT IS VISIBLE IN THE UNIT ,AMBULATORY STEADY GAIT. ALL NEEDS ATTENDED AND ANTICIPATED. WILL CONT. MONITORING FOR SAFETY AND BEHAVIOR.WILL ENDORSE TO INCOMING NURSE FOR THE CONTINUITY OF CARE.
[2022-09-16 20:00] VITALS: BP 115/65
[2022-09-16] MEDS: INSULIN GLARGINE, 100 UNIT/ML CARTRIDGE SQ SCH (21:35)
[2022-09-16] MEDS: INSULIN REGULAR, HUMAN 100 UNIT/ML 3 ML VIAL SQ PRN (21:36)
--- NOTE | 2022-09-16 22:00 | NUR ---
RN-NOTES; REFUSED REGULAR INSULLIN COVERAGE AND REFUSED LANTUS PATIENT BS WAS 188MG/DL, PATIENT REFUSED COVERAGE OF 3 UNITS OF REGULAR INSULIN AND REFUSED 12 UNITS OF LANTUS . PER PT. STATED" I KNOW MY SELF THAT'S GOOD BLOOD SUGAR, MY BLOOD SUGAR DROPPED VERY EASILY ,EXPLAINED RISK AND BENEFITS BUT STILL REFUSED. OFFERED X3 , CHARGE NURSE MADE AWARE ,WILL CONTINUE WITH CARE.
--- NOTE | 2022-09-17 07:30 | NUR ---
PT RECEIVED RESTING COMFORTABLY IN BED. NO S/S OR C/O PAIN OR DISTRESS NOTED SIDE RAILS UP X2. WILL CONTINUE PLAN OF CARE.
[2022-09-17 08:00] VITALS: BP 90/63
[2022-09-17] MEDS: glipiZIDE 5 MG TABLET PO SCH ×2 (09:20→17:00)
[2022-09-17] MEDS: LINAGLIPTIN 5 MG TABLET PO SCH (09:20)
[2022-09-17] MEDS: BLOOD SUGAR DIAGNOSTIC 1 EACH STRIP VI SCH ×4 (09:20→21:35)
[2022-09-17] MEDS: DIVALPROEX SODIUM 125 MG CAP.SPRINK PO SCH ×3 (09:20→17:00)
[2022-09-17] MEDS: METFORMIN 850 MG TABLET PO SCH ×2 (09:21→17:00)
[2022-09-17] MEDS: DOCUSATE SODIUM 100 MG CAPSULE PO SCH (09:21)
[2022-09-17] MEDS: risperiDONE-M 0.5 MG TAB.RAPDIS PO SCH ×3 (09:23→21:35)
[2022-09-17] MEDS: GLUCERNA SHAKE 237 ML CAN PO SCH (09:23)
[2022-09-17] MEDS: INSULIN REGULAR, HUMAN 100 UNIT/ML 3 ML VIAL SQ PRN ×2 (12:40→21:39)
[2022-09-17 16:00] VITALS: BP 109/63
[2022-09-17] MEDS: risperiDONE 1 MG TABLET PO SCH (17:00)
[2022-09-17] MEDS: ASCORBIC ACID 500 MG TABLET PO SCH (17:47)
[2022-09-17] MEDS: ZINC SULFATE 220 MG CAPSULE PO SCH (17:47)
--- NOTE | 2022-09-17 18:29 | NUR ---
CHANGE OF SHIFT REPORT PT RESTING COMFORTABLY IN BED. NO S/S OR C/O PAIN OR DISTRESS NOTED. SIDE RAILS UP X2, CALL LIGHT LEFT WITHIN REACH. PT KEPT CLEAN, DRY, AND COMFORTABLE. NO SIGNIFICANT CHANGES SINCE PREVIOUS SHIFT.
[2022-09-17 21:36] VITALS: BP 118/87
[2022-09-17] MEDS: INSULIN GLARGINE, 100 UNIT/ML CARTRIDGE SQ SCH (21:38)
[2022-09-18 06:54] LABS: BASOPHILS % (AUTO) 0.3 % (0.0-2.0); EOSINOPHILS % (AUTO) 3.9 % (0.0-6.0); HEMATOCRIT 33 % (39-51); HEMOGLOBIN 11.3 g/dL (13.5-17.5); LYMPHOCYTES # (AUTO) 1.1 K/uL (0.8-4.8); LYMPHOCYTES % (AUTO) 30.7 % (20.0-44.0); MEAN CORPUSCULAR HGB CONC 34 g/dl (31.0-36.0); MEAN CORPUSCULAR VOLUME 93 fL (80-96); MONOCYTES # (AUTO) 0.8 K/uL (0.1-1.30); MONOCYTES % (AUTO) 21.3 % (2.0-12.0); NEUTROPHILS # (AUTO) 1.6 K/uL (1.8-8.9); NEUTROPHILS % (AUTO) 43.8 % (43.0-81.0); PLATELET COUNT (AUTO) 177 K/uL (150-450); RED BLOOD CELL COUNT(AUTO) 3.58 MIL/uL (4.5-6.0); WHITE BLOOD COUNT (AUTO) 3.7 K/uL (4.3-11.0)
[2022-09-18 07:12] LABS: BILIRUBIN,TOTAL 0.3 mg/dL (0.2-1.0); CALCIUM, SERUM 9.2 mg/dL (8.5-10.1); CREATININE 0.9 mg/dL (0.6-1.3); POTASSIUM 4.1 mmol/L (3.5-5.1); TOTAL PROTEIN, SERUM 7.2 g/dL (6.4-8.2)
[2022-09-18 08:00] VITALS: BP 131/68
[2022-09-18] MEDS ORDERED: risperiDONE-M 0.5 MG TAB.RAPDIS PO SCH (08:00)
[2022-09-18] MEDS: BLOOD SUGAR DIAGNOSTIC 1 EACH STRIP VI SCH ×4 (10:05→21:37)
[2022-09-18] MEDS: risperiDONE 1 MG TABLET PO SCH ×3 (10:06→17:06)
[2022-09-18] MEDS: glipiZIDE 5 MG TABLET PO SCH ×3 (10:06→17:06)
[2022-09-18] MEDS: DIVALPROEX SODIUM 125 MG CAP.SPRINK PO SCH ×4 (10:06→17:07)
[2022-09-18] MEDS: METFORMIN 850 MG TABLET PO SCH ×3 (10:06→17:06)
[2022-09-18] MEDS: DOCUSATE SODIUM 100 MG CAPSULE PO SCH (10:06)
[2022-09-18] MEDS: LINAGLIPTIN 5 MG TABLET PO SCH (10:06)
[2022-09-18] MEDS: GLUCERNA SHAKE 237 ML CAN PO SCH (10:07)
[2022-09-18] MEDS: INSULIN REGULAR, HUMAN 100 UNIT/ML 3 ML VIAL SQ PRN ×3 (11:30→21:39)
[2022-09-18 16:00] VITALS: BP 100/58
[2022-09-18] MEDS: ASCORBIC ACID 500 MG TABLET PO SCH ×2 (17:07→17:19)
[2022-09-18] MEDS: ZINC SULFATE 220 MG CAPSULE PO SCH ×2 (17:07→17:19)
--- NOTE | 2022-09-18 19:02 | NUR ---
RN NOTE PATIENT ON BED, AWAKE AND A/O X2. ON ROOM AIR TOLERATING WELL. NO SOB NOTED. NOT IN DISTRESS. PATIENT WAS COMPLIANT WITH HIS MEDICATION DURING THE DAY BUT REFUSED ALL HIS PM MEDICATIONS STATING THAT HE DID NOT EAT THAT MUCH. SAFETY MEASURES IN PLACED. BED IN LOWEST LOCKED POSITION, SIDE RAILS UP X2. WILL ENDORSE TO NEXT SHIFT FOR ZHOU.
[2022-09-18 19:52] VITALS: BP 111/49
[2022-09-18] MEDS: risperiDONE-M 0.5 MG TAB.RAPDIS PO SCH (21:35)
[2022-09-18] MEDS: INSULIN GLARGINE, 100 UNIT/ML CARTRIDGE SQ SCH (21:37)
[2022-09-19] MEDS: BLOOD SUGAR DIAGNOSTIC 1 EACH STRIP VI SCH ×4 (07:44→22:21)
[2022-09-19] MEDS: INSULIN REGULAR, HUMAN 100 UNIT/ML 3 ML VIAL SQ PRN ×4 (07:58→23:10)
[2022-09-19 08:00] VITALS: BP 129/71
[2022-09-19] MEDS: DIVALPROEX SODIUM 125 MG CAP.SPRINK PO SCH ×3 (08:18→17:51)
[2022-09-19] MEDS: glipiZIDE 5 MG TABLET PO SCH ×2 (08:18→17:00)
[2022-09-19] MEDS: METFORMIN 850 MG TABLET PO SCH ×2 (08:18→17:00)
[2022-09-19] MEDS: GLUCERNA SHAKE 237 ML CAN PO SCH (08:18)
[2022-09-19] MEDS: risperiDONE 1 MG TABLET PO SCH ×2 (08:18→17:51)
[2022-09-19] MEDS: DOCUSATE SODIUM 100 MG CAPSULE PO SCH (08:18)
[2022-09-19] MEDS: LINAGLIPTIN 5 MG TABLET PO SCH (08:18)
[2022-09-19 16:00] VITALS: BP 100/58
--- NOTE | 2022-09-19 16:46 | NUR ---
GALLERY OR MUSEUM TECHNICIAN NOTE PATIENTS BLOOD SUGAR AT 33, RE DID BLOOD SUGAR CHECK AND CAME BACK AT 31. GAVE PATIENT ORANGE JUICE AND APPLE SAUCE WITH SUGAR. WAITED 15 MINUTES RECHECKED PATIENTS BLOOD SUGAR AT 96. PATIENT WENT TO ACTIVITY ROOM TO HAVE DINNER. Patient is stable and eating no further action taken. NOTIFIED Charge Nurse & DR Ford, on above information. Will continue to monitor patient.
[2022-09-19] MEDS: ASCORBIC ACID 500 MG TABLET PO SCH (17:51)
[2022-09-19] MEDS: ZINC SULFATE 220 MG CAPSULE PO SCH (17:51)
--- NOTE | 2022-09-19 19:40 | NUR ---
RN NOTE RECEIVED PATIENT RESTING IN BED. PT IS FORGETFUL, DISHEVELLED, NEEDS FREQUENTLY REDIRECTIONS. NO ACUTE DISTRESS NOTED AT THIS TIME. COMPLIANT WITH MEDICATIONS. PATIENT DENIES SUICIDAL AND HOMICIDAL IDEATIONS AT THIS TIME. SAFETY PRECAUTIONS MAINTAINED, BED IN LOW POSITION, SR UP X2, CALL LIGHT WITHIN REACH. WILL CONTINUE TO MONITOR PATIENT Q15 MINUTES FOR SAFETY.
[2022-09-19 20:00] VITALS: BP 129/62
[2022-09-19] MEDS: risperiDONE-M 0.5 MG TAB.RAPDIS PO SCH (21:25)
[2022-09-19] MEDS: INSULIN GLARGINE, 100 UNIT/ML CARTRIDGE SQ SCH ×2 (22:00→22:20)
--- NOTE | 2022-09-19 22:00 | NUR ---
RN NOTE BS COMPLETED, PT BS: 269. PT REFUSES 9 UNITS OF REGULAR INSULIN COVERAGE. HE ALSO REFUSES 12 UNITS OF LANTUS. PT STATES THAT HE DOES NOT NEED INSULIN TONIGHT BECAUSE HIS BS IS ONLY 269. HE CLAIMS THAT HIS BS WILL DROP VERY LOW IN THE MORNING IF HE TAKES INSULIN. RISKS, AND BENEFITS OF INSULIN ARE EXPLAINED TO PT. PT UNDERSTANDS TEACHING. CHARGE NURSE MADE AWARE OF SITUATION.
[2022-09-20] MEDS: BLOOD SUGAR DIAGNOSTIC 1 EACH STRIP VI SCH ×4 (06:38→21:26)
[2022-09-20] MEDS: INSULIN REGULAR, HUMAN 100 UNIT/ML 3 ML VIAL SQ PRN ×2 (06:40→21:25)
--- NOTE | 2022-09-20 07:02 | NUR ---
RN NOTE LEFT PATIENT RESTING IN BED. PT IS FORGETFUL, DISHEVELLED, NEEDS FREQUENTLY REDIRECTIONS. NO ACUTE DISTRESS NOTED AT THIS TIME. COMPLIANT WITH MEDICATIONS. PATIENT DENIES SUICIDAL AND HOMICIDAL IDEATIONS AT THIS TIME. PT'S BS: 242. 6 UNITS OF INSULIN ADMINISTERED TO PT. SAFETY PRECAUTIONS MAINTAINED, BED IN LOW POSITION, SR UP X2. WILL ENDORSE PT TO AM SHIFT NURSE FOR ZHOU.
--- NOTE | 2022-09-20 07:40 | NUR ---
RN OPENING NOTE PATIENT AWAKE IN BED RESTING, A/O X 2, COOPERATIVE, COMPLIANT WITH MEDICATIONS. NO S/S OF PAIN NOTED AT THIS TIME. ON ROOM AIR, BREATHING EVEN UNLABORED, NO DISTRESS OR SHORTNESS OF BREATH NOTED. PATIENT DENIES SUICIDE IDEATIONS AND HOMICIDAL IDEATIONS AT THIS TIME. FALL AND SAFETY MEASURES IN PLACE, BED ALARM ON, BED IN LOW AND LOCK POSITION, CALL LIGHT AND TABLE WITHIN EASY REACH, SIDE RAILS UP X2. WILL CONTINUE TO MONITOR Q15 MIN. WITH THE HELP OF STAFF TO MAINTAIN SAFETY.
[2022-09-20 08:00] VITALS: BP 104/66
[2022-09-20] MEDS: glipiZIDE 5 MG TABLET PO SCH ×2 (09:07→17:17)
[2022-09-20] MEDS: METFORMIN 850 MG TABLET PO SCH ×2 (09:07→17:17)
[2022-09-20] MEDS: DIVALPROEX SODIUM 125 MG CAP.SPRINK PO SCH ×3 (09:07→17:17)
[2022-09-20] MEDS: risperiDONE 1 MG TABLET PO SCH ×2 (09:07→17:17)
[2022-09-20] MEDS: DOCUSATE SODIUM 100 MG CAPSULE PO SCH (09:07)
[2022-09-20] MEDS: GLUCERNA SHAKE 237 ML CAN PO SCH (09:08)
[2022-09-20] MEDS: LINAGLIPTIN 5 MG TABLET PO SCH (09:08)
[2022-09-20 16:00] VITALS: BP 121/61
[2022-09-20] MEDS: ASCORBIC ACID 500 MG TABLET PO SCH (17:17)
[2022-09-20] MEDS: ZINC SULFATE 220 MG CAPSULE PO SCH (17:17)
[2022-09-20 19:47] VITALS: BP 95/53
[2022-09-20] MEDS: INSULIN GLARGINE, 100 UNIT/ML CARTRIDGE SQ SCH (21:25)
[2022-09-20] MEDS: risperiDONE-M 0.5 MG TAB.RAPDIS PO SCH (21:25)
[2022-09-21 08:00] VITALS: BP 118/58
[2022-09-21] MEDS: BLOOD SUGAR DIAGNOSTIC 1 EACH STRIP VI SCH ×4 (08:05→22:22)
[2022-09-21] MEDS: DOCUSATE SODIUM 100 MG CAPSULE PO SCH (08:45)
[2022-09-21] MEDS: LINAGLIPTIN 5 MG TABLET PO SCH (08:46)
[2022-09-21] MEDS: METFORMIN 850 MG TABLET PO SCH ×2 (08:46→17:15)
[2022-09-21] MEDS: glipiZIDE 5 MG TABLET PO SCH ×2 (08:46→17:15)
[2022-09-21] MEDS: DIVALPROEX SODIUM 125 MG CAP.SPRINK PO SCH ×2 (08:46→12:19)
[2022-09-21] MEDS: risperiDONE 1 MG TABLET PO SCH ×2 (08:46→17:15)
[2022-09-21] MEDS: GLUCERNA SHAKE 237 ML CAN PO SCH (09:09)
--- NOTE | 2022-09-21 09:12 | NUR ---
RN-NOTES PATIENT BS WAS 223 MG/DL REFUSED 6 UNITS OF R INSULIN DESPITE EXPLANATIONS RISK AND BENEFITS. STATED" NO NO INSULIN".OFFERED X3 STILL REFUSED
--- NOTE | 2022-09-21 11:54 | NUR ---
RN-NOTES RECEIVED T.O ORDER FROM DR. VLADES TO CHARGE DEPAKOTE DR. 750MG P.O Q 1700 TO DEPAKOTE SPRINKLE 750 MG P.O Q 1700. NOTED AND CARRIED OUT.
[2022-09-21] MEDS ORDERED: CADEXOMER IODINE 40 GM TUBE TP SCH (12:00)
--- NOTE | 2022-09-21 13:00 | NUR ---
RN-NOTES PATIENT BS WAS 238 MG/DL REFUSED 6 UNITS OF R INSULIN DESPITE EXPLANATIONS RISK AND BENEFITS. STATED" NO NO INSULIN".OFFERED X3 STILL REFUSED
[2022-09-21 16:00] VITALS: BP 117/63
[2022-09-21] MEDS ORDERED: DIVALPROEX SODIUM 250 MG TABLET.DR PO SCH (17:00)
[2022-09-21] MEDS ORDERED: DIVALPROEX SODIUM 125 MG CAP.SPRINK PO SCH (17:00)
[2022-09-21] MEDS: ZINC SULFATE 220 MG CAPSULE PO SCH (17:15)
[2022-09-21] MEDS: ASCORBIC ACID 500 MG TABLET PO SCH (17:15)
--- NOTE | 2022-09-21 18:38 | NUR ---
RN- CLOSING NOTES PATIENT IS ASLEEP IN BED, BREATHING EVEN AND NON LABORED WITH NO S/S OF DISTRESS. PATIENT IS GUARDED, ANXIOUS, NEEDY, PERSEVERATING ON OPENING THE CONTRABAND LOCKER. PATIENT IS MEDICATION COMPLIANT, EXCEPT FOR INSULIN INJECTION. EDUCATION AND ENCOURAGEMENT X3 GIVEN, BUT PATIENT REFUSED ALL INSULIN COVERAGE. PATIENT IS VISIBLE ON THE UNIT, AMBULATING WITH STEADY GAIT. DENIES SI/HI AT THIS TIME. WILL CONTINUE TO MONITOR Q 15 MINUTES FOR SAFETY AND BEHAVIOR.
--- NOTE | 2022-09-21 19:30 | NUR ---
GPS RN NOTE, RECEIVED PATIENT AWAKE AND IN BED, NO S/S OR COMPLAINTS OF PAIN AT THIS TIME. PATIENT IS DISPLAYING NO S/S OF APPARENT DISTRESS AT THIS TIME. PATIENT BREATHING IS UNLABORED WITH EQUAL RISE AND FALL OF THE CHEST. PATIENT IS ALERT AND ORIENTED X 1-2 ON ROOM AIR WITH A SPO2 98%. PATIENT IS SELECTIVE WITH MEDICATIONS, CONFUSED, ANXIOUS, PARANOID AT TIMES, AND COOPERATIVE. PATIENT DENIES SUICIDAL AND HOMICIDAL IDEATIONS AT THIS TIME. PATIENT ASSISTED WITH TURNING AND REPOSITIONING Q2HR AND PRN FOR COMFORT AND CIRCULATION. PATIENT HAS NO NEEDS AT THIS TIME. PATIENT EDUCATED ON THE USE OF THE CALL ROBBINS. PATIENT BED SIDE RAILS UP X 2 FOR SAFETY. PATIENT BED IS LOCKED AND LOW. WILL CONTINUE TO MONITOR THIS PATIENT Q15 MINUTES WITH THE HELP OF STAFF TO MAINTAIN SAFETY.
[2022-09-21 20:00] VITALS: BP 107/57
[2022-09-21] MEDS: INSULIN GLARGINE, 100 UNIT/ML CARTRIDGE SQ SCH (22:00)
[2022-09-21] MEDS: risperiDONE-M 0.5 MG TAB.RAPDIS PO SCH (22:03)
--- NOTE | 2022-09-21 22:16 | NUR ---
GPS RN NOTE, PERFORMED ACCU CHECK ON PATIENT WITH THE BLOOD SUGAR RESULT OF 161. PATIENT REFUSED REGULAR AND LANTUS INSULIN COVERAGE. OFFERED THREE TIMES AND STILL PATIENT REFUSED STATING, " NO IF YOU GIVE ME INSULIN IT WILL KILL ME ". EDUCATED PATIENT ON THE RISKS AND BENEFITS OF INSULIN. WILL CONTINUE TO MONITOR THIS PATIENT WITH THE HELP OF STAFF.
--- NOTE | 2022-09-22 07:40 | NUR ---
GPS RN NOTE PERFORMED ACCU CHECK ON PATIENT WITH THE BLOOD SUGAR RESULT OF 199. PATIENT REFUSED REGULAR INSULIN COVERAGE. OFFERED THREE TIMES AND STILL PATIENT REFUSED. EDUCATED PATIENT ON THE RISKS AND BENEFITS OF INSULIN. WILL CONTINUE TO MONITOR THIS PATIENT WITH THE HELP OF STAFF.
[2022-09-22] MEDS: BLOOD SUGAR DIAGNOSTIC 1 EACH STRIP VI SCH ×2 (07:56→11:50)
[2022-09-22 08:00] VITALS: BP 122/64
--- NOTE | 2022-09-22 08:15 | NUR ---
SW Discharge Note: Patient will be discharged to [facility] [address] [facility], [place] [address] ([phone]). Please arrange ambulance transportation at 1PM. Spoke with Rebecca, Admin Coordinator at the facility who states they are ready to accept the patient today. SW attempted to contact pts daughter Bouchra ([phone]) and attempted to leave a voicemail. Patient is alert and oriented x1. Patient denies any suicidal or homicidal ideation. Patient will follow-up at the facility with Dr. Stevenson (psychiatrist) [address] [address]; ([phone]) and (Systems Design Engineer) Dr. Ford [address] [facility] [address], [place] [address]; ([phone]). Patient presents with euthymic mood and congruent affect.
[2022-09-22] MEDS: glipiZIDE 5 MG TABLET PO SCH (08:17)
[2022-09-22] MEDS: GLUCERNA SHAKE 237 ML CAN PO SCH (08:17)
[2022-09-22] MEDS: DIVALPROEX SODIUM 125 MG CAP.SPRINK PO SCH ×2 (08:17→12:04)
[2022-09-22] MEDS: METFORMIN 850 MG TABLET PO SCH (08:17)
[2022-09-22] MEDS: LINAGLIPTIN 5 MG TABLET PO SCH (08:17)
[2022-09-22] MEDS: DOCUSATE SODIUM 100 MG CAPSULE PO SCH (08:17)
[2022-09-22] MEDS: risperiDONE 1 MG TABLET PO SCH (08:17)
--- NOTE | 2022-09-22 08:58 | NUR ---
Dr. Lopez gave an order to D/C hold and D/C to [facility] and to follow up with the psych and medical doctors. Dr. Lopez ordered to continue same meds including prn. Dr. Ford made aware of the discharge and reconciled meds to continue in the facility. Pt. without distress, denies suicidal and homicidal. Belongings ready and discharge papers ready. Addendum: 09/22/22 at 1047 by JAM ELIAS RN Dr. Lopez changed the Risperdal po to 1 mg @ 0800, 1300, 1700 and Risperdal 2 mg po @2100.
[2022-09-22] MEDS: INSULIN REGULAR, HUMAN 100 UNIT/ML 3 ML VIAL SQ PRN (09:58)
--- NOTE | 2022-09-22 11:50 | NUR ---
GPS RN NOTE PERFORMED ACCU CHECK ON PATIENT WITH THE BLOOD SUGAR RESULT OF 202. PATIENT REFUSED REGULAR INSULIN COVERAGE. OFFERED TWO TIMES AND STILL PATIENT REFUSED. PATIENT VERBALIZED " I ONLY ATE A LITTLE SO THAT WILL BE OKAY. EDUCATED PATIENT ON THE RISKS AND BENEFITS OF INSULIN. WILL CONTINUE TO MONITOR THIS PATIENT WITH THE HELP OF STAFF.
--- NOTE | 2022-09-22 12:16 | NUR ---
Report given to Leonie LONG over the facility. Pt. signed the discharge papers and pictures taken for the skin issues.
[2022-09-22] MEDS ORDERED: risperiDONE 1 MG TABLET PO SCH (13:00)
--- NOTE | 2022-09-22 13:25 | NUR ---
Pt. left the unit via ambulance with belongings and transported via a gurney. Pt. left the unit via without distress and no agitation noted. V/S taken: BP 138/76, NV 96, RR 18, temp 97.6 and oxygen sat 98%.
== END 2022-09-22 13:25 | DRG 885 ==
LOC: ER 14:05 → GPS 17:34
PROVIDERS: ADMIT Psychiatry & Neurology Psychiatry; ATTEND Internal Medicine
DX: F25.9 Schizoaffective disorder, unspecified (principal); E11.65 Type 2 diabetes mellitus with hyperglycemia; F03.93 Unspecified dementia, unspecified severity, with mood disturbance; F03.94 Unspecified dementia, unspecified severity, with anxiety; F29 Unspecified psychosis not due to a substance or known physiological condition; Z79.4 Long term (current) use of insulin; Z91.199 Patient's noncompliance with other medical treatment and regimen due to unspecified reason; Z91.14 Patient's other noncompliance with medication regimen; Z79.899 Other long term (current) drug therapy; D64.9 Anemia, unspecified; Z20.822 Contact with and (suspected) exposure to COVID-19
CPT/HCPCS: 36415; 80048-TC; 80053-TC; 80076-TC; 80164-TC; 81001; 82962-TC; 85025-TC; 87081-TC; A4223; C9803; G0480; J1815; J2060; J3490; Q0162